=== PATIENT | male | born 1970 | race Caucasian/White ===

== ENCOUNTER 2021-05-16 04:02 | Inpatient (IN) ==
[2021-05-16] MEDS ORDERED: ONDANSETRON 4 MG/2 ML VIAL ONE (04:32)
[2021-05-16] MEDS ORDERED: NITROGLYCERIN 2% OINT 1 INCH/GM PACK TOP STA (04:41)
[2021-05-16] MEDS ORDERED: ASPIRIN 325 MG TABLET PO STA (04:41)
[2021-05-16] MEDS ORDERED: ONDANSETRON 4 MG/2 ML VIAL IV STA (04:41)
[2021-05-16] MEDS ORDERED: MORPHINE 2 MG/1 ML SYRINGE IV STA (04:41)
[2021-05-16] MEDS ORDERED: AMIODARONE 150 MG/3 ML VIAL ONE (05:22)
[2021-05-16 05:24] LABS: Basophils # 0.1 10*3/uL (0.0-0.2); Basophils % 0.5 % (0.0-0.8); Eosinophils # 0.1 10*3/uL (0.0-0.87); Eosinophils % 0.8 % (0.00-10.9); Immature Granulocytes % 0.5 %; Immature Granulocytes Absolute 0.06 #; Lymphocytes # 0.9 10*3/uL (1.4-4.0); Lymphocytes % 8.1 % (21.2-54.2); Mean Corpuscular Volume 94.2 FL (87-102); Mean Platelet Volume 11.4 FL (9.6-12.0); Neutrophils % 86.1 % (38.7-73.9); Platelet Count 290 T/CUMM (130-400); Red Blood Count 1.72 MC/CUMM (3.8-5.5); Red Cell Distribution Width 17.2 % (9.3-17.3); White Blood Count 11.2 T/CUMM (4-12)
[2021-05-16] MEDS ORDERED: AMIODARONE 450 MG/9 ML VIAL IV ONE (05:24)
[2021-05-16 05:26] LABS: Hematocrit 16.2 VOL% (42.0-52.0); Hemoglobin 4.7 GM/DL (14.0-18.0)
[2021-05-16] MEDS ORDERED: AMIODARONE INJ 450 MG in DEXTROSE 5% 241 ML IV SCH (05:30)
[2021-05-16] MEDS ORDERED: SODIUM CHLORIDE 0.9% 1,000 ML IV PRN (05:34)
[2021-05-16 05:37] LABS: INR 1.1; PT Patient Result 12.1 SECS (10.5-12.0)
[2021-05-16 05:55] LABS: Alanine Aminotransferase 28 U/L (16-61); Albumin 2.9 G/DL (3.4-5.0); Alkaline Phosphatase 78 U/L (45-117); Amylase 62 U/L (25-115); Aspartate Amino Transferase 35 U/L (0-37); Bilirubin,Total < 0.39 MG/DL (0.20-1.00); Blood Urea Nitrogen 42 MG/DL (7-18); Calcium 10.3 MG/DL (8.5-10.1); Carbon Dioxide 18 MMOL/L (21-32); Estimated Glom Filtration Rate 38 ML/MIN; Glucose 499 MG/DL (74-106); Osmolality,Calculated 292.8 MOS/KG (273-304); Potassium 4.7 MMOL/L (3.5-5.1); Sodium 130 MMOL/L (136-145); Total Protein 6.4 G/DL (6.4-8.2)
[2021-05-16] MEDS ORDERED: INSULIN REGULAR 100 UNIT/ML SUBCUT STA (05:57)
[2021-05-16] MEDS ORDERED: SIMETHICONE CHEW 125 MG TABLET PO PRN (07:02)
[2021-05-16] MEDS ORDERED: ALBUTEROL/IPRATROPIUM 3 ML NEB RESP TX PRN (07:02)
[2021-05-16] MEDS ORDERED: DOCUSATE SODIUM 100 MG CAPSULE PO PRN (07:02)
[2021-05-16] MEDS ORDERED: CALCIUM CARBONATE CHEW 500 MG TABLET PO PRN (07:02)
[2021-05-16] MEDS ORDERED: ACETAMINOPHEN 325 MG TABLET PO PRN (07:02)
[2021-05-16] MEDS ORDERED: BISACODYL 5 MG TABLET PO PRN (07:02)
[2021-05-16] MEDS ORDERED: DEXTROSE 50% 25 GM/50 ML VIAL IV PRN (07:12)
[2021-05-16] MEDS ORDERED: GLUCAGON 1 MG VIAL IM PRN (07:12)
[2021-05-16] MEDS ORDERED: ENOXAPARIN 30 MG/0.3 ML SYRINGE SUBCUT SCH (07:30)
[2021-05-16] MEDS ORDERED: LACTATED RINGERS 1,000 ML IV SCH (07:30)
[2021-05-16] MEDS ORDERED: PANTOPRAZOLE 40 MG VIAL IV SCH (07:30)
[2021-05-16] MEDS: INSULIN REGULAR 100 UNIT/ML SUBCUT SCH ×4 (08:15→21:40)
[2021-05-16] MEDS: levETIRAcetam 500 MG TABLET PO SCH ×2 (08:44→21:37)
[2021-05-16] MEDS: carvediloL 6.25 MG TABLET PO SCH ×2 (08:44→21:37)
[2021-05-16] MEDS: CEFUROXIME 500 MG TABLET PO SCH ×2 (08:44→22:19)
[2021-05-16] MEDS: INSULIN GLARGINE 100 UNIT/ML SUBCUT SCH ×2 (10:16→21:40)
[2021-05-16] MEDS: LINEZOLID 600 MG TABLET PO SCH ×2 (10:16→21:37)
[2021-05-16] MEDS: PANTOPRAZOLE 40 MG VIAL IV SCH ×2 (13:08→23:46)
[2021-05-16] MEDS: ALBUTEROL/IPRATROPIUM 3 ML NEB RESP TX SCH ×2 (13:40→20:00)
[2021-05-16] MEDS: ONDANSETRON 4 MG/2 ML VIAL IV PRN (14:46)
[2021-05-16] MEDS: ATORVASTATIN 80 MG TABLET PO SCH (21:37)
[2021-05-17] MEDS: ALBUTEROL/IPRATROPIUM 3 ML NEB RESP TX SCH ×4 (00:30→19:55)
[2021-05-17] MEDS ORDERED: SODIUM CHLORIDE 0.9% 500 ML IV ONE (01:02)
[2021-05-17 01:31] LABS: Basophils # 0.1 10*3/uL (0.0-0.2); Basophils % 0.5 % (0.0-0.8); Eosinophils # 0.1 10*3/uL (0.0-0.87); Eosinophils % 1.2 % (0.00-10.9); Hematocrit 18.6 VOL% (42.0-52.0); Immature Granulocytes % 0.8 %; Immature Granulocytes Absolute 0.09 #; Lymphocytes # 1.7 10*3/uL (1.4-4.0); Lymphocytes % 15.3 % (21.2-54.2); Mean Corpuscular HGB Conc 31.7 GM/DL (32-36); Mean Corpuscular Volume 88.6 FL (87-102); Mean Platelet Volume 10.7 FL (9.6-12.0); Monocytes % 6.7 % (1.7-12.7); NRBC # 0.04 10*3/uL; Neutrophils % 75.5 % (38.7-73.9); Platelet Count 199 T/CUMM (130-400); Red Cell Distribution Width 15.8 % (9.3-17.3); White Blood Count 11.1 T/CUMM (4-12)
[2021-05-17 01:32] LABS: Hemoglobin 5.9 GM/DL (14.0-18.0)
[2021-05-17] MEDS ORDERED: SODIUM CHLORIDE 0.9% 1,000 ML IV PRN (01:37)
[2021-05-17] MEDS ORDERED: MORPHINE 2 MG/1 ML SYRINGE IV ONE (06:30)
[2021-05-17] MEDS ORDERED: MORPHINE 2 MG/1 ML SYRINGE ONE (06:32)
[2021-05-17 08:41] LABS: Basophils # 0.1 10*3/uL (0.0-0.2); Basophils % 0.7 % (0.0-0.8); Eosinophils # 0.1 10*3/uL (0.0-0.87); Eosinophils % 1.1 % (0.00-10.9); Hematocrit 28.2 VOL% (42.0-52.0); Hemoglobin 8.8 GM/DL (14.0-18.0); Immature Granulocytes % 1.5 %; Immature Granulocytes Absolute 0.17 #; Lymphocytes # 1.4 10*3/uL (1.4-4.0); Lymphocytes % 12.3 % (21.2-54.2); Mean Corpuscular HGB Conc 31.2 GM/DL (32-36); Mean Corpuscular Volume 87.6 FL (87-102); Monocytes % 6.6 % (1.7-12.7); NRBC # 0.05 10*3/uL; Neutrophils % 77.8 % (38.7-73.9); Platelet Count 204 T/CUMM (130-400); Red Blood Count 3.22 MC/CUMM (3.8-5.5); Red Cell Distribution Width 17.7 % (9.3-17.3); White Blood Count 11.4 T/CUMM (4-12)
[2021-05-17] MEDS: INSULIN GLARGINE 100 UNIT/ML SUBCUT SCH ×2 (09:19→21:02)
[2021-05-17] MEDS: LINEZOLID 600 MG TABLET PO SCH ×2 (09:19→21:30)
[2021-05-17] MEDS: carvediloL 6.25 MG TABLET PO SCH ×2 (09:19→21:30)
[2021-05-17] MEDS: levETIRAcetam 500 MG TABLET PO SCH ×2 (09:19→21:01)
[2021-05-17] MEDS: CEFUROXIME 500 MG TABLET PO SCH ×2 (09:19→21:01)
[2021-05-17] MEDS: INSULIN REGULAR 100 UNIT/ML SUBCUT SCH ×4 (09:20→21:03)
[2021-05-17 09:23] LABS: Albumin 2.7 G/DL (3.4-5.0); Bilirubin,Total 1.4 MG/DL (0.20-1.00); Calcium 9.5 MG/DL (8.5-10.1); Potassium 4.5 MMOL/L (3.5-5.1); Total Protein 6.3 G/DL (6.4-8.2)
[2021-05-17] MEDS: PANTOPRAZOLE 40 MG VIAL IV SCH (12:26)
[2021-05-17 13:18] LABS: Hematocrit 26.4 VOL% (42.0-52.0); Hemoglobin 8.5 GM/DL (14.0-18.0)
[2021-05-17] MEDS: SODIUM HYPOCHLORITE 0.25% IRRIG 473 ML BOTTLE TOP SCH (15:12)
[2021-05-17 19:16] LABS: Hematocrit 27.7 VOL% (42.0-52.0); Hemoglobin 8.9 GM/DL (14.0-18.0)
[2021-05-17] MEDS: ATORVASTATIN 80 MG TABLET PO SCH (21:02)
[2021-05-17] MEDS: ONDANSETRON 4 MG/2 ML VIAL IV PRN (22:03)
[2021-05-18] MEDS: ALBUTEROL/IPRATROPIUM 3 ML NEB RESP TX SCH ×4 (00:04→20:09)
[2021-05-18] MEDS: PANTOPRAZOLE 40 MG VIAL IV SCH ×2 (01:06→12:24)
[2021-05-18 03:12] LABS: Basophils # 0.1 10*3/uL (0.0-0.2); Basophils % 0.9 % (0.0-0.8); Eosinophils # 0.3 10*3/uL (0.0-0.87); Eosinophils % 2.4 % (0.00-10.9); Hematocrit 24.7 VOL% (42.0-52.0); Hemoglobin 7.8 GM/DL (14.0-18.0); Immature Granulocytes Absolute 0.11 #; Lymphocytes # 2.1 10*3/uL (1.4-4.0); Lymphocytes % 19.5 % (21.2-54.2); Mean Corpuscular HGB Conc 31.6 GM/DL (32-36); Mean Corpuscular Volume 86.4 FL (87-102); Mean Platelet Volume 10.3 FL (9.6-12.0); Monocytes % 8.2 % (1.7-12.7); NRBC # 0.04 10*3/uL; Platelet Count 177 T/CUMM (130-400); Red Blood Count 2.86 MC/CUMM (3.8-5.5); Red Cell Distribution Width 17.7 % (9.3-17.3); White Blood Count 10.7 T/CUMM (4-12)
[2021-05-18 03:41] LABS: Calcium 8.6 MG/DL (8.5-10.1); Osmolality,Calculated 275.8 MOS/KG (273-304); Potassium 3.8 MMOL/L (3.5-5.1)
[2021-05-18] MEDS: INSULIN REGULAR 100 UNIT/ML SUBCUT SCH ×4 (08:46→20:57)
[2021-05-18] MEDS: SODIUM HYPOCHLORITE 0.25% IRRIG 473 ML BOTTLE TOP SCH (08:47)
[2021-05-18] MEDS: CEFUROXIME 500 MG TABLET PO SCH ×2 (09:15→20:56)
[2021-05-18] MEDS: carvediloL 6.25 MG TABLET PO SCH ×2 (09:16→20:56)
[2021-05-18] MEDS: levETIRAcetam 500 MG TABLET PO SCH ×2 (09:17→20:56)
[2021-05-18] MEDS: LINEZOLID 600 MG TABLET PO SCH ×2 (09:18→20:56)
[2021-05-18] MEDS: INSULIN GLARGINE 100 UNIT/ML SUBCUT SCH ×2 (09:18→20:56)
[2021-05-18] MEDS: ONDANSETRON 4 MG/2 ML VIAL IV PRN ×2 (10:40→18:46)
[2021-05-18] MEDS ORDERED: MORPHINE 2 MG/1 ML SYRINGE IV ONE (10:43)
[2021-05-18] MEDS: SODIUM CHLORIDE 0.9% 1,000 ML IV SCH (13:27)
[2021-05-18] MEDS ORDERED: LIDOCAINE 2% 5 ML VIAL ONE (13:43)
[2021-05-18] MEDS ORDERED: ETOMIDATE 40 MG/20 ML VIAL IV ONE (13:43)
[2021-05-18] MEDS ORDERED: MIDAZOLAM 2 MG/2 ML VIAL ONE (13:51)
[2021-05-18] MEDS: ATORVASTATIN 80 MG TABLET PO SCH (20:54)
[2021-05-19] MEDS: ALBUTEROL/IPRATROPIUM 3 ML NEB RESP TX SCH ×4 (00:26→20:07)
[2021-05-19] MEDS: PANTOPRAZOLE 40 MG VIAL IV SCH ×2 (00:27→12:58)
[2021-05-19 05:58] LABS: Basophils # 0.1 10*3/uL (0.0-0.2); Basophils % 0.7 % (0.0-0.8); Eosinophils # 0.4 10*3/uL (0.0-0.87); Eosinophils % 3.8 % (0.00-10.9); Hematocrit 24.7 VOL% (42.0-52.0); Hemoglobin 7.8 GM/DL (14.0-18.0); Immature Granulocytes % 0.9 %; Immature Granulocytes Absolute 0.09 #; Lymphocytes # 2.1 10*3/uL (1.4-4.0); Lymphocytes % 20.5 % (21.2-54.2); Mean Corpuscular HGB Conc 31.6 GM/DL (32-36); Mean Corpuscular Volume 87.6 FL (87-102); Mean Platelet Volume 11.2 FL (9.6-12.0); Monocytes % 9.1 % (1.7-12.7); NRBC # 0.03 10*3/uL; Platelet Count 173 T/CUMM (130-400); Red Blood Count 2.82 MC/CUMM (3.8-5.5); Red Cell Distribution Width 17.2 % (9.3-17.3)
[2021-05-19 06:43] LABS: Calcium 8.3 MG/DL (8.5-10.1); Osmolality,Calculated 276.8 MOS/KG (273-304); Potassium 3.5 MMOL/L (3.5-5.1)
[2021-05-19] MEDS: SODIUM CHLORIDE 0.9% 1,000 ML IV SCH (07:33)
[2021-05-19] MEDS: carvediloL 6.25 MG TABLET PO SCH ×2 (09:41→21:55)
[2021-05-19] MEDS: levETIRAcetam 500 MG TABLET PO SCH ×2 (09:41→21:54)
[2021-05-19] MEDS: LINEZOLID 600 MG TABLET PO SCH ×2 (09:41→21:53)
[2021-05-19] MEDS: CEFUROXIME 500 MG TABLET PO SCH ×2 (09:41→21:54)
[2021-05-19] MEDS: INSULIN REGULAR 100 UNIT/ML SUBCUT SCH ×4 (09:45→21:56)
[2021-05-19] MEDS: INSULIN GLARGINE 100 UNIT/ML SUBCUT SCH ×2 (09:46→21:55)
[2021-05-19] MEDS: SODIUM HYPOCHLORITE 0.25% IRRIG 473 ML BOTTLE TOP SCH (14:19)
[2021-05-19] MEDS ORDERED: BISACODYL 5 MG TABLET PO ONE (15:00)
[2021-05-19] MEDS: ONDANSETRON 4 MG/2 ML VIAL IV PRN ×2 (17:46→21:56)
[2021-05-19] MEDS ORDERED: POLYETHYLENE GLYCOL POWDER 255 GM BOTTLE PO ONE (18:00)
[2021-05-19] MEDS: ATORVASTATIN 80 MG TABLET PO SCH (21:53)
[2021-05-20] MEDS: PANTOPRAZOLE 40 MG VIAL IV SCH ×3 (00:03→23:19)
[2021-05-20] MEDS: ALBUTEROL/IPRATROPIUM 3 ML NEB RESP TX SCH ×4 (01:38→19:05)
[2021-05-20] MEDS: ONDANSETRON 4 MG/2 ML VIAL IV PRN ×4 (01:47→18:18)
[2021-05-20] MEDS ORDERED: POLYETHYLENE GLYCOL POWDER 255 GM BOTTLE PO ONE (05:00)
[2021-05-20 06:13] LABS: Basophils # 0.1 10*3/uL (0.0-0.2); Basophils % 0.7 % (0.0-0.8); Eosinophils # 0.6 10*3/uL (0.0-0.87); Eosinophils % 5.4 % (0.00-10.9); Hemoglobin 7.6 GM/DL (14.0-18.0); Immature Granulocytes % 0.8 %; Immature Granulocytes Absolute 0.08 #; Lymphocytes # 1.7 10*3/uL (1.4-4.0); Lymphocytes % 16.9 % (21.2-54.2); Mean Corpuscular HGB Conc 30.4 GM/DL (32-36); Mean Corpuscular Volume 89.6 FL (87-102); Mean Platelet Volume 11.7 FL (9.6-12.0); Monocytes % 7.8 % (1.7-12.7); NRBC # 0.02 10*3/uL; Neutrophils % 68.4 % (38.7-73.9); Platelet Count 192 T/CUMM (130-400); Red Blood Count 2.79 MC/CUMM (3.8-5.5); Red Cell Distribution Width 17.1 % (9.3-17.3); White Blood Count 10.1 T/CUMM (4-12)
[2021-05-20 06:26] LABS: PT Patient Result 11.4 SECS (10.5-12.0)
[2021-05-20 06:29] LABS: Calcium 7.9 MG/DL (8.5-10.1); Osmolality,Calculated 274.5 MOS/KG (273-304); Potassium 3.7 MMOL/L (3.5-5.1)
[2021-05-20] MEDS: INSULIN REGULAR 100 UNIT/ML SUBCUT SCH ×4 (07:58→22:14)
[2021-05-20] MEDS: INSULIN GLARGINE 100 UNIT/ML SUBCUT SCH ×2 (09:48→22:14)
[2021-05-20] MEDS: SODIUM CHLORIDE 0.9% 1,000 ML IV SCH (09:48)
[2021-05-20] MEDS: LACTATED RINGERS 1,000 ML IV SCH (12:20)
[2021-05-20] MEDS ORDERED: MIDAZOLAM 2 MG/2 ML VIAL ONE (12:26)
[2021-05-20] MEDS ORDERED: ETOMIDATE 40 MG/20 ML VIAL IV ONE (12:26)
[2021-05-20] MEDS ORDERED: propofoL 200 MG/20 ML VIAL IV ONE (12:26)
[2021-05-20] MEDS ORDERED: LIDOCAINE 2% 5 ML VIAL ONE (12:27)
[2021-05-20] MEDS: LINEZOLID 600 MG TABLET PO SCH ×2 (14:35→22:13)
[2021-05-20] MEDS: CEFUROXIME 500 MG TABLET PO SCH ×2 (14:35→22:13)
[2021-05-20] MEDS: SODIUM HYPOCHLORITE 0.25% IRRIG 473 ML BOTTLE TOP SCH (14:35)
[2021-05-20] MEDS: levETIRAcetam 500 MG TABLET PO SCH ×2 (14:35→22:14)
[2021-05-20] MEDS: carvediloL 6.25 MG TABLET PO SCH ×2 (14:35→22:13)
[2021-05-20] MEDS: ATORVASTATIN 80 MG TABLET PO SCH (22:13)
[2021-05-21] MEDS: ALBUTEROL/IPRATROPIUM 3 ML NEB RESP TX SCH ×2 (01:08→07:29)
[2021-05-21 05:03] LABS: Basophils % 0.4 % (0.0-0.8); Eosinophils # 0.5 10*3/uL (0.0-0.87); Eosinophils % 5.3 % (0.00-10.9); Hematocrit 24.4 VOL% (42.0-52.0); Hemoglobin 7.4 GM/DL (14.0-18.0); Immature Granulocytes % 0.6 %; Immature Granulocytes Absolute 0.05 #; Lymphocytes # 2.2 10*3/uL (1.4-4.0); Lymphocytes % 24.2 % (21.2-54.2); Mean Corpuscular HGB Conc 30.3 GM/DL (32-36); Mean Corpuscular Volume 88.4 FL (87-102); Monocytes % 7.9 % (1.7-12.7); Neutrophils % 61.6 % (38.7-73.9); Platelet Count 158 T/CUMM (130-400); Red Blood Count 2.76 MC/CUMM (3.8-5.5); Red Cell Distribution Width 17.6 % (9.3-17.3)
[2021-05-21 05:22] LABS: Calcium 7.9 MG/DL (8.5-10.1); Osmolality,Calculated 273.7 MOS/KG (273-304); Potassium 3.6 MMOL/L (3.5-5.1)
[2021-05-21 05:51] LABS: Hypochromasia 1+; Microcytosis 1+
[2021-05-21 05:52] LABS: Anisocytosis 1+; Ovalocytes Slight; Platelet Estimate Adequate; Polychromasia Slight
[2021-05-21] MEDS: INSULIN REGULAR 100 UNIT/ML SUBCUT SCH ×2 (08:11→12:45)
[2021-05-21] MEDS: SODIUM CHLORIDE 0.9% 1,000 ML IV SCH (09:51)
[2021-05-21] MEDS: LACTATED RINGERS 1,000 ML IV SCH (09:51)
[2021-05-21] MEDS: LINEZOLID 600 MG TABLET PO SCH (10:15)
[2021-05-21] MEDS: levETIRAcetam 500 MG TABLET PO SCH (10:15)
[2021-05-21] MEDS: CEFUROXIME 500 MG TABLET PO SCH (10:16)
[2021-05-21] MEDS: carvediloL 6.25 MG TABLET PO SCH (10:16)
[2021-05-21] MEDS: INSULIN GLARGINE 100 UNIT/ML SUBCUT SCH (10:18)
[2021-05-21] MEDS: SODIUM HYPOCHLORITE 0.25% IRRIG 473 ML BOTTLE TOP SCH (10:21)
[2021-05-21 11:02] VITALS: BP 138/75
[2021-05-21] MEDS: PANTOPRAZOLE 40 MG VIAL IV SCH (12:45)
== END 2021-05-21 13:10 | disposition home or self-care (01) | DRG 813 ==
LOC: EDBD → EDUNIT# → N.ED 04:02 → N.EDINP 07:03 → SUATTDRO 07:03 → N.ICU 17:50 → N.TELES 05-17 16:00
PROVIDERS: ADMIT Internal Medicine; ATTEND Internal Medicine

== ENCOUNTER 2021-11-07 17:55 | Inpatient (IN) ==
[2021-11-07] MEDS ORDERED: VANCOMYCIN INJ 1,000 MG in SODIUM CHLORIDE 0.9% 250 ML IV STA ×2 (21:45→22:54)
[2021-11-07] MEDS ORDERED: SODIUM CHLORIDE 0.9% 500 ML IV STA (21:45)
[2021-11-07] MEDS ORDERED: PIPERACILLIN/TAZOBACTAM 3,375 MG in SODIUM CHLORIDE 0.9% 100 ML IV STA (21:45)
[2021-11-07 22:29] LABS: Basophils # 0.1 10*3/uL (0.0-0.2); Basophils % 0.8 % (0.0-0.8); Eosinophils # 0.6 10*3/uL (0.0-0.87); Eosinophils % 5.4 % (0.00-10.9); Hematocrit 41.5 VOL% (42.0-52.0); Hemoglobin 13.7 GM/DL (14.0-18.0); Immature Granulocytes % 0.7 %; Immature Granulocytes Absolute 0.08 #; Lymphocytes # 1.7 10*3/uL (1.4-4.0); Lymphocytes % 14.8 % (21.2-54.2); Mean Corpuscular Volume 96.1 FL (87-102); Mean Platelet Volume 11.2 FL (9.6-12.0); Monocytes % 7.3 % (1.7-12.7); Platelet Count 218 T/CUMM (130-400); Red Blood Count 4.32 MC/CUMM (3.8-5.5); Red Cell Distribution Width 13.4 % (9.3-17.3); White Blood Count 11.4 T/CUMM (4-12)
[2021-11-07 22:47] LABS: INR 0.9; PT Patient Result 10.7 SECS (10.5-12.0)
[2021-11-07 23:08] LABS: Alanine Aminotransferase 29 U/L (16-61); Albumin 1.5 G/DL (3.4-5.0); Alkaline Phosphatase 111 U/L (45-117); Amylase 51 U/L (25-115); Aspartate Amino Transferase 33 U/L (0-37); Bilirubin,Total < 0.39 MG/DL (0.20-1.00); Blood Urea Nitrogen 16 MG/DL (7-18); Calcium 7.8 MG/DL (8.5-10.1); Carbon Dioxide 24 MMOL/L (21-32); Estimated Glom Filtration Rate 49 ML/MIN; Glucose 227 MG/DL (74-106); Osmolality,Calculated 284.5 MOS/KG (273-304); Potassium 3.3 MMOL/L (3.5-5.1); Sodium 139 MMOL/L (136-145)
[2021-11-07] MEDS ORDERED: ONDANSETRON 4 MG/2 ML VIAL IV PRN (23:48)
[2021-11-07] MEDS ORDERED: GLUCAGON 1 MG VIAL IM PRN (23:48)
[2021-11-07] MEDS ORDERED: ACETAMINOPHEN 325 MG TABLET PO PRN (23:48)
[2021-11-07] MEDS ORDERED: DEXTROSE 10% 250 ML BAG IV PRN (23:53)
[2021-11-08 05:18] LABS: Basophils # 0.1 10*3/uL (0.0-0.2); Basophils % 0.8 % (0.0-0.8); Eosinophils # 0.5 10*3/uL (0.0-0.87); Eosinophils % 5.2 % (0.00-10.9); Hematocrit 37.8 VOL% (42.0-52.0); Hemoglobin 12.2 GM/DL (14.0-18.0); Immature Granulocytes % 0.7 %; Immature Granulocytes Absolute 0.06 #; Lymphocytes # 1.3 10*3/uL (1.4-4.0); Lymphocytes % 14.5 % (21.2-54.2); Mean Corpuscular HGB Conc 32.3 GM/DL (32-36); Mean Corpuscular Volume 98.2 FL (87-102); Mean Platelet Volume 11.1 FL (9.6-12.0); Monocytes % 6.2 % (1.7-12.7); Neutrophils % 72.6 % (38.7-73.9); Platelet Count 190 T/CUMM (130-400); Red Blood Count 3.85 MC/CUMM (3.8-5.5); Red Cell Distribution Width 13.5 % (9.3-17.3); White Blood Count 9.1 T/CUMM (4-12)
[2021-11-08 05:31] LABS: Calcium 7.5 MG/DL (8.5-10.1); Osmolality,Calculated 292.5 MOS/KG (273-304); Potassium 3.4 MMOL/L (3.5-5.1)
[2021-11-08] MEDS ORDERED: INSULIN REGULAR 100 UNIT/ML SUBCUT SCH (07:30)
[2021-11-08 07:40] LABS: Bilirubin,Urine Negative (Negative); Blood, Urine Small mg/dL (Negative); Glucose,Urine (UA) >=500 mg/dL (Negative); Ketones,Urine Negative (Negative); Mucus,Urine Occasional /LPF (Occasional); Nitrite,Urine Negative (Negative); Protein,Urine >=500 MG/DL; RBC,Urine 1 /HPF (0-4); Urine Appearance CLEAR (Clear); Urine Color Straw (Yellow); Urine Specific Gravity 1.013 (1.001-1.035); Urine Urobilinogen < 2.0 EU/DL (<2.0)
[2021-11-08] MEDS ORDERED: POTASSIUM CHLORIDE RIDER 10 MEQ/100 ML PREMIX IV PRN (09:37)
[2021-11-08] MEDS ORDERED: POTASSIUM CHLORIDE 20 MEQ TABLET PO PRN (09:37)
[2021-11-08] MEDS: ATORVASTATIN 80 MG TABLET PO SCH (10:42)
[2021-11-08] MEDS: FUROSEMIDE 20 MG TABLET PO SCH (10:42)
[2021-11-08] MEDS: SACUBITRIL/VALSARTAN 49-51 MG TABLET PO SCH ×2 (10:42→21:14)
[2021-11-08] MEDS: CLOPIDOGREL 75 MG TABLET PO SCH (10:44)
[2021-11-08] MEDS: GABAPENTIN 300 MG CAPSULE PO SCH ×3 (10:44→21:14)
[2021-11-08] MEDS: PANTOPRAZOLE 40 MG TABLET PO SCH (10:45)
[2021-11-08] MEDS: carvediloL 12.5 MG TABLET PO SCH ×2 (10:52→21:14)
[2021-11-08] MEDS ORDERED: DEXTROSE 10% 250 ML BAG IV PRN (11:04)
[2021-11-08] MEDS ORDERED: KETOROLAC 30 MG/1 ML VIAL IV PRN (11:05)
[2021-11-08] MEDS: INSULIN LISPRO 100 UNIT/ML SUBCUT SCH ×2 (12:10→18:29)
[2021-11-08] MEDS ORDERED: BUPIVACAINE 0.5% 50 ML VIAL ONE (13:12)
[2021-11-08] MEDS ORDERED: LIDOCAINE 1%/EPI INJ 20 ML VIAL ONE (13:12)
[2021-11-08] MEDS ORDERED: MIDAZOLAM 2 MG/2 ML VIAL ONE (13:15)
[2021-11-08] MEDS ORDERED: KETAMINE 500 MG/10 ML VIAL ONE (13:15)
[2021-11-08] MEDS ORDERED: propofoL 200 MG/20 ML VIAL IV ONE (13:24)
[2021-11-08] MEDS ORDERED: LIDOCAINE 2% 5 ML VIAL ONE (13:24)
[2021-11-08] MEDS ORDERED: fentaNYL 100 MCG/2 ML VIAL ONE (13:28)
[2021-11-08] MEDS ORDERED: LACTATED RINGERS 1,000 ML IV SCH (13:30)
[2021-11-08] MEDS: VANCOMYCIN INJ 1,500 MG in SODIUM CHLORIDE 0.9% 500 ML IV SCH (18:27)
[2021-11-08] MEDS: DAPAGLIFLOZIN 10 MG TABLET PO SCH (21:14)
[2021-11-09] MEDS: INSULIN LISPRO 100 UNIT/ML SUBCUT SCH ×5 (00:19→19:36)
[2021-11-09 05:50] LABS: Basophils # 0.1 10*3/uL (0.0-0.2); Basophils % 0.9 % (0.0-0.8); Eosinophils # 0.4 10*3/uL (0.0-0.87); Eosinophils % 4.3 % (0.00-10.9); Hematocrit 37.9 VOL% (42.0-52.0); Immature Granulocytes % 0.8 %; Immature Granulocytes Absolute 0.08 #; Lymphocytes # 1.5 10*3/uL (1.4-4.0); Lymphocytes % 14.9 % (21.2-54.2); Mean Corpuscular HGB Conc 31.7 GM/DL (32-36); Mean Corpuscular Volume 98.2 FL (87-102); Mean Platelet Volume 11.6 FL (9.6-12.0); Monocytes % 8.3 % (1.7-12.7); Neutrophils % 70.8 % (38.7-73.9); Platelet Count 189 T/CUMM (130-400); Red Blood Count 3.86 MC/CUMM (3.8-5.5); Red Cell Distribution Width 13.7 % (9.3-17.3); White Blood Count 9.8 T/CUMM (4-12)
[2021-11-09 06:10] LABS: Calcium 7.4 MG/DL (8.5-10.1); Osmolality,Calculated 283.4 MOS/KG (273-304); Potassium 3.4 MMOL/L (3.5-5.1)
[2021-11-09] MEDS: ATORVASTATIN 80 MG TABLET PO SCH (09:37)
[2021-11-09] MEDS: CLOPIDOGREL 75 MG TABLET PO SCH (09:37)
[2021-11-09] MEDS: carvediloL 12.5 MG TABLET PO SCH ×2 (09:38→20:17)
[2021-11-09] MEDS: FUROSEMIDE 20 MG TABLET PO SCH (09:38)
[2021-11-09] MEDS: GABAPENTIN 300 MG CAPSULE PO SCH ×3 (09:38→20:17)
[2021-11-09] MEDS: SACUBITRIL/VALSARTAN 49-51 MG TABLET PO SCH ×2 (09:38→20:17)
[2021-11-09] MEDS: PIPERACILLIN/TAZOBACTAM 3,375 MG in SODIUM CHLORIDE 0.9% 100 ML IV SCH ×2 (09:38→19:25)
[2021-11-09] MEDS: PANTOPRAZOLE 40 MG TABLET PO SCH (09:46)
[2021-11-09] MEDS: VANCOMYCIN INJ 1,500 MG in SODIUM CHLORIDE 0.9% 500 ML IV SCH (14:07)
[2021-11-09] MEDS: SODIUM HYPOCHLORITE 0.25% IRRIG 473 ML BOTTLE TOP SCH (14:08)
[2021-11-09] MEDS: FERROUS SULFATE 325 MG TABLET PO SCH (20:17)
[2021-11-09] MEDS: DAPAGLIFLOZIN 10 MG TABLET PO SCH (20:17)
[2021-11-09] MEDS ORDERED: hydrALAZINE 20 MG/1 ML VIAL IV PRN (21:17)
[2021-11-10] MEDS: INSULIN LISPRO 100 UNIT/ML SUBCUT SCH ×2 (00:32→05:22)
[2021-11-10] MEDS: PIPERACILLIN/TAZOBACTAM 3,375 MG in SODIUM CHLORIDE 0.9% 100 ML IV SCH ×2 (01:46→10:12)
[2021-11-10] MEDS: VANCOMYCIN INJ 1,500 MG in SODIUM CHLORIDE 0.9% 500 ML IV SCH (05:14)
[2021-11-10 06:30] LABS: Basophils # 0.1 10*3/uL (0.0-0.2); Eosinophils # 0.5 10*3/uL (0.0-0.87); Eosinophils % 6.3 % (0.00-10.9); Hematocrit 35.5 VOL% (42.0-52.0); Hemoglobin 11.6 GM/DL (14.0-18.0); Immature Granulocytes % 0.7 %; Immature Granulocytes Absolute 0.05 #; Lymphocytes # 1.5 10*3/uL (1.4-4.0); Lymphocytes % 19.6 % (21.2-54.2); Mean Corpuscular HGB Conc 32.7 GM/DL (32-36); Mean Corpuscular Volume 97.3 FL (87-102); Mean Platelet Volume 11.7 FL (9.6-12.0); Monocytes % 7.2 % (1.7-12.7); Neutrophils % 65.2 % (38.7-73.9); Platelet Count 185 T/CUMM (130-400); Red Blood Count 3.65 MC/CUMM (3.8-5.5); Red Cell Distribution Width 13.4 % (9.3-17.3); White Blood Count 7.7 T/CUMM (4-12)
[2021-11-10 06:33] LABS: Calcium 7.6 MG/DL (8.5-10.1); Osmolality,Calculated 289.4 MOS/KG (273-304); Potassium 3.5 MMOL/L (3.5-5.1)
[2021-11-10 08:25] VITALS: BP 146/73
[2021-11-10] MEDS ORDERED: INSULIN DETEMIR 100 UNIT/ML SUBCUT SCH (09:00)
[2021-11-10] MEDS ORDERED: INSULIN GLARGINE 100 UNIT/ML SUBCUT SCH (09:00)
[2021-11-10] MEDS: GABAPENTIN 300 MG CAPSULE PO SCH (09:18)
[2021-11-10] MEDS: ATORVASTATIN 80 MG TABLET PO SCH (09:18)
[2021-11-10] MEDS: carvediloL 12.5 MG TABLET PO SCH (09:18)
[2021-11-10] MEDS: FUROSEMIDE 20 MG TABLET PO SCH (09:18)
[2021-11-10] MEDS: PANTOPRAZOLE 40 MG TABLET PO SCH (09:19)
[2021-11-10] MEDS: SACUBITRIL/VALSARTAN 49-51 MG TABLET PO SCH (09:19)
[2021-11-10] MEDS: CLOPIDOGREL 75 MG TABLET PO SCH (09:19)
[2021-11-10] MEDS: FERROUS SULFATE 325 MG TABLET PO SCH (09:19)
[2021-11-10] MEDS: SODIUM HYPOCHLORITE 0.25% IRRIG 473 ML BOTTLE TOP SCH (09:19)
[2021-11-10] MEDS ORDERED: amLODIPine 5 MG TABLET PO SCH (21:16)
== END 2021-11-10 12:30 | disposition home health service (06) | DRG 638 ==
LOC: N.EDINP 17:55 → N.ED 17:55 → SUATTDRO 11-08 02:40 → N.3E 11-08 12:55
PROVIDERS: ADMIT Hospitalist; ATTEND Internal Medicine

== ENCOUNTER 2022-06-27 00:13 | Observation (INO) ==
[2022-06-27] MEDS ORDERED: NITROGLYCERIN SL 0.4 MG TABLET SL STA (00:34)
[2022-06-27 00:56] LABS: PT Patient Result 10.9 SECS (10.1-12.1); Partial Thromboplastin Time 24.4 SECS (23.7-32.9)
[2022-06-27 01:06] LABS: Bilirubin,Total 0.4 MG/DL (0.20-1.00); Calcium 8.7 MG/DL (8.5-10.1); Osmolality,Calculated 290.4 MOS/KG (273-304); Potassium 4.4 MMOL/L (3.5-5.1); Total Protein 5.9 G/DL (6.4-8.2)
[2022-06-27 01:17] LABS: Basophils # 0.1 10*3/uL (0.0-0.2); Eosinophils # 0.4 10*3/uL (0.0-0.87); Eosinophils % 3.6 % (0.00-10.9); Hematocrit 40.6 VOL% (42.0-52.0); Hemoglobin 12.6 GM/DL (14.0-18.0); Immature Granulocytes % 0.5 %; Immature Granulocytes Absolute 0.05 #; Lymphocytes # 1.9 10*3/uL (1.4-4.0); Lymphocytes % 18.7 % (21.2-54.2); Mean Corpuscular Volume 96.7 FL (87-102); Mean Platelet Volume 11.1 FL (9.6-12.0); Monocytes # 0.7 10*3/uL (0.11-0.8); Monocytes % 6.6 % (1.7-12.7); Neutrophils % 69.6 % (38.7-73.9); Platelet Count 231 T/CUMM (130-400); White Blood Count 10.4 T/CUMM (4-12)
[2022-06-27] MEDS ORDERED: MORPHINE 2 MG/1 ML SYRINGE IV STA (01:25)
[2022-06-27] MEDS ORDERED: LABETALOL 20 MG/4 ML SYRINGE IV STA (01:25)
[2022-06-27] MEDS ORDERED: ONDANSETRON 4 MG/2 ML VIAL IV ONE (01:25)
[2022-06-27] MEDS ORDERED: NITROGLYCERIN 2% OINT 1 INCH/GM PACK TOP STA (01:25)
[2022-06-27] MEDS ORDERED: hydrALAZINE 20 MG/1 ML VIAL IV PRN (02:50)
[2022-06-27] MEDS ORDERED: MORPHINE 2 MG/1 ML SYRINGE IV PRN (02:50)
[2022-06-27] MEDS ORDERED: ACETAMINOPHEN 325 MG TABLET PO PRN (02:50)
[2022-06-27] MEDS ORDERED: ONDANSETRON 4 MG/2 ML VIAL IV PRN (02:50)
[2022-06-27] MEDS ORDERED: FUROSEMIDE 20 MG/2 ML VIAL IV ONE (03:45)
[2022-06-27] MEDS ORDERED: NITROGLYCERIN SL 0.4 MG TABLET SL PRN (03:47)
[2022-06-27] MEDS ORDERED: NITROGLYCERIN 2% OINT 1 INCH/GM PACK TOP SCH (06:00)
[2022-06-27] MEDS: POTASSIUM CHLORIDE 20 MEQ TABLET PO SCH ×2 (08:33→21:10)
[2022-06-27] MEDS: carvediloL 12.5 MG TABLET PO SCH ×2 (08:34→21:10)
[2022-06-27] MEDS: ISOSORBIDE MONONITRATE 30 MG TABLET PO SCH (08:35)
[2022-06-27] MEDS: PANTOPRAZOLE 40 MG TABLET PO SCH (08:35)
[2022-06-27] MEDS: ATORVASTATIN 80 MG TABLET PO SCH (08:36)
[2022-06-27] MEDS: GABAPENTIN 300 MG CAPSULE PO SCH ×3 (08:36→21:10)
[2022-06-27] MEDS: FUROSEMIDE 20 MG TABLET PO SCH (08:37)
[2022-06-27] MEDS: INSULIN LISPRO 100 UNIT/ML SUBCUT SCH ×4 (08:39→21:11)
[2022-06-27] MEDS ORDERED: DEXTROSE 10% 250 ML BAG IV PRN (08:52)
[2022-06-27] MEDS ORDERED: GLUCAGON 1 MG VIAL IM PRN (08:52)
[2022-06-27] MEDS ORDERED: ASPIRIN EC 81 MG TABLET PO SCH (09:45)
[2022-06-28 05:06] LABS: Basophils # 0.1 10*3/uL (0.0-0.2); Eosinophils # 0.3 10*3/uL (0.0-0.87); Eosinophils % 3.7 % (0.00-10.9); Hematocrit 34.3 VOL% (42.0-52.0); Hemoglobin 10.7 GM/DL (14.0-18.0); Immature Granulocytes % 0.5 %; Immature Granulocytes Absolute 0.04 #; Lymphocytes # 1.8 10*3/uL (1.4-4.0); Lymphocytes % 20.1 % (21.2-54.2); Mean Corpuscular HGB Conc 31.2 GM/DL (32-36); Mean Corpuscular Volume 97.7 FL (87-102); Mean Platelet Volume 11.4 FL (9.6-12.0); Monocytes # 0.6 10*3/uL (0.11-0.8); Monocytes % 7.4 % (1.7-12.7); Neutrophils % 67.3 % (38.7-73.9); Platelet Count 193 T/CUMM (130-400); Red Blood Count 3.51 MC/CUMM (3.8-5.5); White Blood Count 8.7 T/CUMM (4-12)
[2022-06-28 05:26] LABS: Osmolality,Calculated 293.4 MOS/KG (273-304); Potassium 4.2 MMOL/L (3.5-5.1)
[2022-06-28] MEDS ORDERED: CLOPIDOGREL 75 MG TABLET PO SCH (09:00)
[2022-06-28] MEDS: INSULIN LISPRO 100 UNIT/ML SUBCUT SCH ×2 (09:10→12:15)
[2022-06-28] MEDS: GABAPENTIN 300 MG CAPSULE PO SCH (09:11)
[2022-06-28] MEDS: POTASSIUM CHLORIDE 20 MEQ TABLET PO SCH (09:12)
[2022-06-28] MEDS: carvediloL 12.5 MG TABLET PO SCH (09:12)
[2022-06-28] MEDS: ISOSORBIDE MONONITRATE 30 MG TABLET PO SCH (09:12)
[2022-06-28] MEDS: ATORVASTATIN 80 MG TABLET PO SCH (09:12)
[2022-06-28] MEDS: PANTOPRAZOLE 40 MG TABLET PO SCH (09:12)
[2022-06-28] MEDS: FUROSEMIDE 20 MG TABLET PO SCH (09:13)
[2022-06-28 11:06] LABS: Hematocrit 35.6 VOL% (42.0-52.0); Hemoglobin 11.2 GM/DL (14.0-18.0)
[2022-06-28 12:28] VITALS: BP 143/79
== END 2022-06-28 14:12 | disposition home or self-care (01) ==
LOC: N.ED 00:13 → N.TELES 00:13 → SUATTDRO 02:44 → N.TELES 03:50
PROVIDERS: ADMIT Family Medicine; ATTEND Internal Medicine

== ENCOUNTER 2022-07-19 20:47 | Inpatient (IN) ==
[2022-07-19] MEDS ORDERED: MORPHINE 2 MG/1 ML SYRINGE IV ONE (21:05)
[2022-07-19] MEDS ORDERED: ONDANSETRON 4 MG/2 ML VIAL IV ONE (21:05)
[2022-07-19 21:52] LABS: Basophils # 0.1 10*3/uL (0.0-0.2); Basophils % 0.6 % (0.0-0.8); Eosinophils # 0.2 10*3/uL (0.0-0.87); Eosinophils % 1.8 % (0.00-10.9); Hematocrit 28.3 VOL% (42.0-52.0); Hemoglobin 8.7 GM/DL (14.0-18.0); Immature Granulocytes % 2.8 %; Immature Granulocytes Absolute 0.38 #; Lymphocytes # 1.6 10*3/uL (1.4-4.0); Lymphocytes % 11.8 % (21.2-54.2); Mean Corpuscular HGB Conc 30.7 GM/DL (32-36); Mean Corpuscular Volume 97.9 FL (87-102); Mean Platelet Volume 10.9 FL (9.6-12.0); Monocytes % 7.4 % (1.7-12.7); Neutrophils % 75.6 % (38.7-73.9); Platelet Count 292 T/CUMM (130-400); Red Blood Count 2.89 MC/CUMM (3.8-5.5); Red Cell Distribution Width 13.7 % (9.3-17.3); White Blood Count 13.5 T/CUMM (4-12)
[2022-07-19 22:02] LABS: PT Patient Result 11.5 SECS (10.1-12.1)
[2022-07-19 22:11] LABS: Alanine Aminotransferase 17 U/L (16-61); Albumin 1.6 G/DL (3.4-5.0); Alkaline Phosphatase 103 U/L (45-117); Aspartate Amino Transferase 13 U/L (0-37); Bilirubin,Total < 0.39 MG/DL (0.20-1.00); Blood Urea Nitrogen 23 MG/DL (7-18); Calcium 8.7 MG/DL (8.5-10.1); Carbon Dioxide 23 MMOL/L (21-32); Chloride 112 MMOL/L (98-107); Glucose 187 MG/DL (74-106); Osmolality,Calculated 289.3 MOS/KG (273-304); Potassium 5.4 MMOL/L (3.5-5.1); Sodium 141 MMOL/L (136-145); Total Protein 5.9 G/DL (6.4-8.2)
[2022-07-19] MEDS ORDERED: PIPERACILLIN/TAZOBACTAM 3,375 MG in SODIUM CHLORIDE 0.9% 100 ML IV STA (22:19)
[2022-07-19] MEDS ORDERED: VANCOMYCIN INJ 1,000 MG in SODIUM CHLORIDE 0.9% 250 ML IV STA (22:19)
[2022-07-19] MEDS ORDERED: hydrALAZINE 20 MG/1 ML VIAL IV PRN (22:58)
[2022-07-19] MEDS ORDERED: ALUMINUM/MAGNES/SIMETH MAX STR 30 ML UDCUP PO PRN (22:58)
[2022-07-19] MEDS ORDERED: ALBUTEROL 2.5 MG/3 ML NEB RESP TX PRN (22:58)
[2022-07-19] MEDS ORDERED: MORPHINE 2 MG/1 ML SYRINGE IV PRN (22:58)
[2022-07-19] MEDS: ONDANSETRON 4 MG/2 ML VIAL IV PRN (23:35)
[2022-07-19] MEDS: HYDROmorphone 1 MG/1 ML SYRINGE IV PRN (23:37)
[2022-07-20] MEDS: HYDROmorphone 1 MG/1 ML SYRINGE IV PRN ×5 (03:19→20:03)
[2022-07-20] MEDS ORDERED: PIPERACILLIN/TAZOBACTAM 2.25 MG in SODIUM CHLORIDE 0.9% 100 ML IV SCH (04:00)
[2022-07-20 05:08] LABS: Basophils # 0.1 10*3/uL (0.0-0.2); Basophils % 0.6 % (0.0-0.8); Eosinophils # 0.2 10*3/uL (0.0-0.87); Eosinophils % 1.7 % (0.00-10.9); Hematocrit 27.4 VOL% (42.0-52.0); Hemoglobin 8.3 GM/DL (14.0-18.0); Immature Granulocytes % 2.4 %; Lymphocytes # 1.8 10*3/uL (1.4-4.0); Lymphocytes % 14.1 % (21.2-54.2); Mean Corpuscular HGB Conc 30.3 GM/DL (32-36); Mean Platelet Volume 11.1 FL (9.6-12.0); Neutrophils % 73.2 % (38.7-73.9); Platelet Count 260 T/CUMM (130-400); Red Blood Count 2.74 MC/CUMM (3.8-5.5); Red Cell Distribution Width 13.9 % (9.3-17.3); White Blood Count 12.6 T/CUMM (4-12)
[2022-07-20 05:22] LABS: Calcium 8.6 MG/DL (8.5-10.1); Osmolality,Calculated 293.1 MOS/KG (273-304); Potassium 5.3 MMOL/L (3.5-5.1)
[2022-07-20 05:28] LABS: Folate 18.47 NG/ML (5.38-24.0); Vitamin B12 1637 PG/ML (211-911)
[2022-07-20] MEDS ORDERED: PIPERACILLIN/TAZOBACTAM 3,375 MG in SODIUM CHLORIDE 0.9% 100 ML IV SCH (06:00)
[2022-07-20 07:04] LABS: Sedimentation Rate-Westergren 128 MM/HR (0-20)
[2022-07-20] MEDS: CYANOCOBALAMIN 500 MCG TABLET PO SCH (08:56)
[2022-07-20] MEDS: carvediloL 12.5 MG TABLET PO SCH ×2 (08:56→20:03)
[2022-07-20] MEDS: CHOLECALCIFEROL 1,000 UNIT TABLET PO SCH (08:56)
[2022-07-20] MEDS: FERROUS SULFATE 325 MG TABLET PO SCH (08:56)
[2022-07-20] MEDS: PANTOPRAZOLE 40 MG TABLET PO SCH (08:57)
[2022-07-20] MEDS: DOCUSATE SODIUM 100 MG CAPSULE PO SCH ×2 (08:58→20:10)
[2022-07-20] MEDS: ISOSORBIDE MONONITRATE 30 MG TABLET PO SCH (08:58)
[2022-07-20] MEDS: GABAPENTIN 300 MG CAPSULE PO SCH ×3 (08:59→20:03)
[2022-07-20] MEDS: INSULIN GLARGINE 100 UNIT/ML SUBCUT SCH (08:59)
[2022-07-20] MEDS: ATORVASTATIN 80 MG TABLET PO SCH (08:59)
[2022-07-20] MEDS: HEPARIN 5,000 UNIT/1 ML VIAL SUBCUT SCH ×2 (08:59→20:04)
[2022-07-20] MEDS ORDERED: POTASSIUM CHLORIDE 20 MEQ TABLET PO SCH ×2 (09:00)
[2022-07-20] MEDS ORDERED: CLOPIDOGREL 75 MG TABLET PO SCH (09:00)
[2022-07-20] MEDS: INSULIN REGULAR 100 UNIT/ML SUBCUT SCH ×4 (09:00→20:04)
[2022-07-20 09:02] LABS: Hemoglobin A1 (Alkaline) 97.9 % (96.5-98.5); Hemoglobin A2 (Alkaline) 2.1 % (1.5-3.5)
[2022-07-20] MEDS: FUROSEMIDE 20 MG TABLET PO SCH (09:02)
[2022-07-20] MEDS ORDERED: SODIUM POLYSTYRENE SULFATE 15 GM/60 ML BOTTLE PO ONE (13:00)
[2022-07-20] MEDS: PIPERACILLIN/TAZOBACTAM 3,375 MG in SODIUM CHLORIDE 0.9% 100 ML IV SCH (16:16)
[2022-07-20] MEDS ORDERED: DAPAGLIFLOZIN 10 MG TABLET PO SCH (21:00)
[2022-07-21] MEDS: HYDROmorphone 1 MG/1 ML SYRINGE IV PRN ×4 (00:01→21:01)
[2022-07-21] MEDS: PIPERACILLIN/TAZOBACTAM 3,375 MG in SODIUM CHLORIDE 0.9% 100 ML IV SCH ×2 (04:07→18:07)
[2022-07-21 05:47] LABS: Basophils # 0.1 10*3/uL (0.0-0.2); Basophils % 0.5 % (0.0-0.8); Eosinophils # 0.2 10*3/uL (0.0-0.87); Eosinophils % 1.5 % (0.00-10.9); Hemoglobin 8.2 GM/DL (14.0-18.0); Immature Granulocytes % 2.1 %; Immature Granulocytes Absolute 0.27 #; Lymphocytes # 1.3 10*3/uL (1.4-4.0); Lymphocytes % 10.1 % (21.2-54.2); Mean Corpuscular HGB Conc 30.4 GM/DL (32-36); Mean Corpuscular Volume 98.2 FL (87-102); Mean Platelet Volume 11.1 FL (9.6-12.0); Monocytes % 7.9 % (1.7-12.7); Neutrophils % 77.9 % (38.7-73.9); Platelet Count 306 T/CUMM (130-400); Red Blood Count 2.75 MC/CUMM (3.8-5.5); White Blood Count 12.8 T/CUMM (4-12)
[2022-07-21 06:04] LABS: Alanine Aminotransferase 14 U/L (16-61); Albumin 1.5 G/DL (3.4-5.0); Alkaline Phosphatase 84 U/L (45-117); Aspartate Amino Transferase 11 U/L (0-37); Bilirubin,Total < 0.39 MG/DL (0.20-1.00); Blood Urea Nitrogen 25 MG/DL (7-18); Calcium 8.7 MG/DL (8.5-10.1); Carbon Dioxide 21 MMOL/L (21-32); Chloride 107 MMOL/L (98-107); Glucose 147 MG/DL (74-106); Osmolality,Calculated 281.7 MOS/KG (273-304); Potassium 4.9 MMOL/L (3.5-5.1); Sodium 138 MMOL/L (136-145); Total Protein 6.3 G/DL (6.4-8.2)
[2022-07-21] MEDS: DOCUSATE SODIUM 100 MG CAPSULE PO SCH ×2 (08:49→20:53)
[2022-07-21] MEDS: CHOLECALCIFEROL 1,000 UNIT TABLET PO SCH (08:49)
[2022-07-21] MEDS: PANTOPRAZOLE 40 MG TABLET PO SCH (08:49)
[2022-07-21] MEDS: ATORVASTATIN 80 MG TABLET PO SCH (08:49)
[2022-07-21] MEDS: FERROUS SULFATE 325 MG TABLET PO SCH (08:49)
[2022-07-21] MEDS: FUROSEMIDE 20 MG TABLET PO SCH (08:49)
[2022-07-21] MEDS: carvediloL 12.5 MG TABLET PO SCH ×2 (08:50→20:53)
[2022-07-21] MEDS: GABAPENTIN 300 MG CAPSULE PO SCH ×3 (08:50→20:53)
[2022-07-21] MEDS: ISOSORBIDE MONONITRATE 30 MG TABLET PO SCH (08:50)
[2022-07-21] MEDS: CYANOCOBALAMIN 500 MCG TABLET PO SCH (08:50)
[2022-07-21] MEDS: HEPARIN 5,000 UNIT/1 ML VIAL SUBCUT SCH ×2 (08:50→20:54)
[2022-07-21] MEDS: INSULIN REGULAR 100 UNIT/ML SUBCUT SCH ×4 (08:57→20:54)
[2022-07-21] MEDS: INSULIN GLARGINE 100 UNIT/ML SUBCUT SCH (08:57)
[2022-07-21] MEDS: NYSTATIN 500,000 UNIT/5 ML UDCUP PO SCH ×3 (13:43→20:53)
[2022-07-22] MEDS: HYDROmorphone 1 MG/1 ML SYRINGE IV PRN ×7 (00:13→21:15)
[2022-07-22] MEDS: PIPERACILLIN/TAZOBACTAM 3,375 MG in SODIUM CHLORIDE 0.9% 100 ML IV SCH ×2 (05:02→16:54)
[2022-07-22 06:21] LABS: Basophils # 0.1 10*3/uL (0.0-0.2); Basophils % 0.4 % (0.0-0.8); Eosinophils # 0.2 10*3/uL (0.0-0.87); Eosinophils % 1.1 % (0.00-10.9); Hematocrit 25.3 VOL% (42.0-52.0); Hemoglobin 7.8 GM/DL (14.0-18.0); Immature Granulocytes % 1.8 %; Immature Granulocytes Absolute 0.25 #; Lymphocytes # 1.5 10*3/uL (1.4-4.0); Lymphocytes % 10.7 % (21.2-54.2); Mean Corpuscular HGB Conc 30.8 GM/DL (32-36); Mean Corpuscular Volume 96.9 FL (87-102); Monocytes # 1.1 10*3/uL (0.11-0.8); Monocytes % 7.7 % (1.7-12.7); Neutrophils % 78.3 % (38.7-73.9); Platelet Count 302 T/CUMM (130-400); Red Blood Count 2.61 MC/CUMM (3.8-5.5); Red Cell Distribution Width 13.9 % (9.3-17.3); White Blood Count 13.7 T/CUMM (4-12)
[2022-07-22 06:58] LABS: Alanine Aminotransferase 15 U/L (16-61); Albumin 1.6 G/DL (3.4-5.0); Alkaline Phosphatase 80 U/L (45-117); Aspartate Amino Transferase 14 U/L (0-37); Bilirubin,Total < 0.39 MG/DL (0.20-1.00); Blood Urea Nitrogen 29 MG/DL (7-18); Calcium 8.5 MG/DL (8.5-10.1); Carbon Dioxide 23 MMOL/L (21-32); Chloride 106 MMOL/L (98-107); Glucose 196 MG/DL (74-106); Osmolality,Calculated 285.7 MOS/KG (273-304); Potassium 4.5 MMOL/L (3.5-5.1); Sodium 138 MMOL/L (136-145); Total Protein 6.7 G/DL (6.4-8.2)
[2022-07-22] MEDS ORDERED: LIDOCAINE 1% 20 ML VIAL MISC INJ ONE (09:36)
[2022-07-22] MEDS: FUROSEMIDE 20 MG TABLET PO SCH (10:12)
[2022-07-22] MEDS: PANTOPRAZOLE 40 MG TABLET PO SCH (10:12)
[2022-07-22] MEDS: HEPARIN 5,000 UNIT/1 ML VIAL SUBCUT SCH ×2 (10:12→20:48)
[2022-07-22] MEDS: NYSTATIN 500,000 UNIT/5 ML UDCUP PO SCH ×4 (10:12→20:48)
[2022-07-22] MEDS: GABAPENTIN 300 MG CAPSULE PO SCH ×3 (10:12→20:48)
[2022-07-22] MEDS: CHOLECALCIFEROL 1,000 UNIT TABLET PO SCH (10:12)
[2022-07-22] MEDS: CYANOCOBALAMIN 500 MCG TABLET PO SCH (10:12)
[2022-07-22] MEDS: ISOSORBIDE MONONITRATE 30 MG TABLET PO SCH (10:12)
[2022-07-22] MEDS: carvediloL 12.5 MG TABLET PO SCH ×2 (10:12→20:49)
[2022-07-22] MEDS: FERROUS SULFATE 325 MG TABLET PO SCH (10:12)
[2022-07-22] MEDS: DOCUSATE SODIUM 100 MG CAPSULE PO SCH ×2 (10:12→20:48)
[2022-07-22] MEDS: INSULIN GLARGINE 100 UNIT/ML SUBCUT SCH (10:12)
[2022-07-22] MEDS: INSULIN REGULAR 100 UNIT/ML SUBCUT SCH ×4 (10:12→20:48)
[2022-07-22] MEDS: ATORVASTATIN 80 MG TABLET PO SCH (10:12)
[2022-07-22] MEDS: ONDANSETRON 4 MG/2 ML VIAL IV PRN ×2 (11:27→21:16)
[2022-07-23] MEDS: HYDROmorphone 1 MG/1 ML SYRINGE IV PRN ×5 (00:15→21:34)
[2022-07-23] MEDS: ONDANSETRON 4 MG/2 ML VIAL IV PRN (01:44)
[2022-07-23] MEDS: PIPERACILLIN/TAZOBACTAM 3,375 MG in SODIUM CHLORIDE 0.9% 100 ML IV SCH ×2 (04:16→17:45)
[2022-07-23 05:31] LABS: Basophils # 0.1 10*3/uL (0.0-0.2); Basophils % 0.5 % (0.0-0.8); Eosinophils # 0.3 10*3/uL (0.0-0.87); Eosinophils % 2.5 % (0.00-10.9); Hematocrit 25.8 VOL% (42.0-52.0); Hemoglobin 7.7 GM/DL (14.0-18.0); Immature Granulocytes % 2.2 %; Immature Granulocytes Absolute 0.29 #; Lymphocytes # 1.5 10*3/uL (1.4-4.0); Lymphocytes % 11.7 % (21.2-54.2); Mean Corpuscular HGB Conc 29.8 GM/DL (32-36); Mean Corpuscular Volume 97.7 FL (87-102); Mean Platelet Volume 10.8 FL (9.6-12.0); Monocytes % 7.8 % (1.7-12.7); NRBC # 0.02 10*3/uL; Neutrophils % 75.3 % (38.7-73.9); Platelet Count 285 T/CUMM (130-400); Red Blood Count 2.64 MC/CUMM (3.8-5.5); Red Cell Distribution Width 13.7 % (9.3-17.3)
[2022-07-23 06:03] LABS: Alanine Aminotransferase 14 U/L (16-61); Albumin 1.7 G/DL (3.4-5.0); Alkaline Phosphatase 76 U/L (45-117); Aspartate Amino Transferase 11 U/L (0-37); Bilirubin,Total < 0.39 MG/DL (0.20-1.00); Blood Urea Nitrogen 32 MG/DL (7-18); Calcium 8.7 MG/DL (8.5-10.1); Carbon Dioxide 22 MMOL/L (21-32); Chloride 105 MMOL/L (98-107); Glucose 295 MG/DL (74-106); Osmolality,Calculated 290.8 MOS/KG (273-304); Potassium 4.2 MMOL/L (3.5-5.1); Sodium 137 MMOL/L (136-145); Total Protein 6.4 G/DL (6.4-8.2)
[2022-07-23] MEDS: DOCUSATE SODIUM 100 MG CAPSULE PO SCH ×2 (09:09→21:33)
[2022-07-23] MEDS: INSULIN REGULAR 100 UNIT/ML SUBCUT SCH ×4 (09:09→21:34)
[2022-07-23] MEDS: carvediloL 12.5 MG TABLET PO SCH ×2 (09:09→21:33)
[2022-07-23] MEDS: FUROSEMIDE 20 MG TABLET PO SCH (09:10)
[2022-07-23] MEDS: FERROUS SULFATE 325 MG TABLET PO SCH (09:10)
[2022-07-23] MEDS: ATORVASTATIN 80 MG TABLET PO SCH (09:10)
[2022-07-23] MEDS: INSULIN GLARGINE 100 UNIT/ML SUBCUT SCH (09:10)
[2022-07-23] MEDS: HEPARIN 5,000 UNIT/1 ML VIAL SUBCUT SCH ×2 (09:10→21:34)
[2022-07-23] MEDS: ISOSORBIDE MONONITRATE 30 MG TABLET PO SCH (09:10)
[2022-07-23] MEDS: NYSTATIN 500,000 UNIT/5 ML UDCUP PO SCH ×4 (09:11→21:33)
[2022-07-23] MEDS: CHOLECALCIFEROL 1,000 UNIT TABLET PO SCH (09:11)
[2022-07-23] MEDS: PANTOPRAZOLE 40 MG TABLET PO SCH (09:11)
[2022-07-23] MEDS: GABAPENTIN 300 MG CAPSULE PO SCH ×3 (09:11→21:33)
[2022-07-23] MEDS: CYANOCOBALAMIN 500 MCG TABLET PO SCH (09:11)
[2022-07-23] MEDS ORDERED: LACTATED RINGERS 1,000 ML IV SCH (09:30)
[2022-07-23] MEDS ORDERED: KETAMINE 500 MG/10 ML VIAL ONE (11:46)
[2022-07-23] MEDS ORDERED: fentaNYL 100 MCG/2 ML VIAL ONE (12:07)
[2022-07-23] MEDS ORDERED: BUPIVACAINE MPF 0.25% 10 ML VIAL ONE (12:12)
[2022-07-23] MEDS ORDERED: GLUCAGON 1 MG VIAL IM PRN (17:39)
[2022-07-23] MEDS ORDERED: DEXTROSE 10% 250 ML BAG IV PRN (17:45)
[2022-07-24] MEDS: HYDROmorphone 1 MG/1 ML SYRINGE IV PRN ×7 (00:45→23:39)
[2022-07-24 05:35] LABS: Basophils # 0.1 10*3/uL (0.0-0.2); Basophils % 0.7 % (0.0-0.8); Eosinophils # 0.4 10*3/uL (0.0-0.87); Eosinophils % 3.4 % (0.00-10.9); Hematocrit 25.7 VOL% (42.0-52.0); Hemoglobin 7.8 GM/DL (14.0-18.0); Immature Granulocytes % 2.7 %; Immature Granulocytes Absolute 0.33 #; Lymphocytes # 1.8 10*3/uL (1.4-4.0); Lymphocytes % 14.3 % (21.2-54.2); Mean Corpuscular HGB Conc 30.4 GM/DL (32-36); Mean Corpuscular Volume 98.5 FL (87-102); Mean Platelet Volume 10.7 FL (9.6-12.0); Monocytes # 0.8 10*3/uL (0.11-0.8); Monocytes % 6.4 % (1.7-12.7); Neutrophils % 72.5 % (38.7-73.9); Platelet Count 312 T/CUMM (130-400); Red Blood Count 2.61 MC/CUMM (3.8-5.5); Red Cell Distribution Width 13.9 % (9.3-17.3); White Blood Count 12.4 T/CUMM (4-12)
[2022-07-24] MEDS: PIPERACILLIN/TAZOBACTAM 3,375 MG in SODIUM CHLORIDE 0.9% 100 ML IV SCH ×2 (05:40→17:00)
[2022-07-24 05:59] LABS: Alanine Aminotransferase 15 U/L (16-61); Albumin 1.7 G/DL (3.4-5.0); Alkaline Phosphatase 77 U/L (45-117); Aspartate Amino Transferase 12 U/L (0-37); Bilirubin,Total < 0.39 MG/DL (0.20-1.00); Blood Urea Nitrogen 29 MG/DL (7-18); Calcium 8.4 MG/DL (8.5-10.1); Carbon Dioxide 22 MMOL/L (21-32); Chloride 110 MMOL/L (98-107); Glucose 278 MG/DL (74-106); Osmolality,Calculated 296.3 MOS/KG (273-304); Potassium 4.5 MMOL/L (3.5-5.1); Sodium 141 MMOL/L (136-145); Total Protein 6.5 G/DL (6.4-8.2)
[2022-07-24] MEDS: ATORVASTATIN 80 MG TABLET PO SCH (08:29)
[2022-07-24] MEDS: PANTOPRAZOLE 40 MG TABLET PO SCH (08:29)
[2022-07-24] MEDS: NYSTATIN 500,000 UNIT/5 ML UDCUP PO SCH ×4 (08:30→20:10)
[2022-07-24] MEDS: GABAPENTIN 300 MG CAPSULE PO SCH ×3 (08:30→20:09)
[2022-07-24] MEDS: CYANOCOBALAMIN 500 MCG TABLET PO SCH (08:30)
[2022-07-24] MEDS: carvediloL 12.5 MG TABLET PO SCH ×2 (08:31→20:10)
[2022-07-24] MEDS: FERROUS SULFATE 325 MG TABLET PO SCH (08:31)
[2022-07-24] MEDS: CHOLECALCIFEROL 1,000 UNIT TABLET PO SCH (08:32)
[2022-07-24] MEDS: INSULIN GLARGINE 100 UNIT/ML SUBCUT SCH (08:33)
[2022-07-24] MEDS: DOCUSATE SODIUM 100 MG CAPSULE PO SCH ×2 (08:33→20:10)
[2022-07-24] MEDS: ISOSORBIDE MONONITRATE 30 MG TABLET PO SCH (08:41)
[2022-07-24] MEDS: INSULIN REGULAR 100 UNIT/ML SUBCUT SCH ×4 (08:41→20:09)
[2022-07-24] MEDS: HEPARIN 5,000 UNIT/1 ML VIAL SUBCUT SCH ×2 (08:42→20:09)
[2022-07-24] MEDS: ONDANSETRON 4 MG/2 ML VIAL IV PRN (10:22)
[2022-07-25] MEDS: HYDROmorphone 1 MG/1 ML SYRINGE IV PRN ×7 (02:46→21:20)
[2022-07-25 05:02] LABS: Basophils # 0.1 10*3/uL (0.0-0.2); Basophils % 0.6 % (0.0-0.8); Eosinophils # 0.5 10*3/uL (0.0-0.87); Eosinophils % 4.2 % (0.00-10.9); Hematocrit 22.6 VOL% (42.0-52.0); Hemoglobin 6.7 GM/DL (14.0-18.0); Immature Granulocytes Absolute 0.24 #; Lymphocytes # 1.6 10*3/uL (1.4-4.0); Lymphocytes % 13.1 % (21.2-54.2); Mean Corpuscular HGB Conc 29.6 GM/DL (32-36); Mean Corpuscular Volume 99.1 FL (87-102); Mean Platelet Volume 10.9 FL (9.6-12.0); Monocytes # 0.8 10*3/uL (0.11-0.8); Monocytes % 6.3 % (1.7-12.7); Neutrophils % 73.8 % (38.7-73.9); Platelet Count 280 T/CUMM (130-400); Red Blood Count 2.28 MC/CUMM (3.8-5.5); Red Cell Distribution Width 14.1 % (9.3-17.3); White Blood Count 12.3 T/CUMM (4-12)
[2022-07-25] MEDS: PIPERACILLIN/TAZOBACTAM 3,375 MG in SODIUM CHLORIDE 0.9% 100 ML IV SCH (05:38)
[2022-07-25 05:42] LABS: Alanine Aminotransferase 13 U/L (16-61); Albumin 1.6 G/DL (3.4-5.0); Alkaline Phosphatase 65 U/L (45-117); Aspartate Amino Transferase 10 U/L (0-37); Bilirubin,Total < 0.39 MG/DL (0.20-1.00); Blood Urea Nitrogen 27 MG/DL (7-18); Calcium 8.4 MG/DL (8.5-10.1); Carbon Dioxide 19 MMOL/L (21-32); Chloride 109 MMOL/L (98-107); Glucose 214 MG/DL (74-106); Osmolality,Calculated 285.7 MOS/KG (273-304); Potassium 4.3 MMOL/L (3.5-5.1); Sodium 138 MMOL/L (136-145); Total Protein 5.9 G/DL (6.4-8.2)
[2022-07-25] MEDS: INSULIN REGULAR 100 UNIT/ML SUBCUT SCH ×4 (08:56→21:20)
[2022-07-25] MEDS: PANTOPRAZOLE 40 MG TABLET PO SCH (08:57)
[2022-07-25] MEDS: ATORVASTATIN 80 MG TABLET PO SCH (08:57)
[2022-07-25] MEDS: HEPARIN 5,000 UNIT/1 ML VIAL SUBCUT SCH ×2 (08:57→21:19)
[2022-07-25] MEDS: ISOSORBIDE MONONITRATE 30 MG TABLET PO SCH (08:58)
[2022-07-25] MEDS: carvediloL 12.5 MG TABLET PO SCH ×2 (08:58→21:19)
[2022-07-25] MEDS: GABAPENTIN 300 MG CAPSULE PO SCH ×3 (08:58→21:19)
[2022-07-25] MEDS: CYANOCOBALAMIN 500 MCG TABLET PO SCH (08:58)
[2022-07-25] MEDS: SODIUM BICARBONATE 650 MG TABLET PO SCH ×2 (08:58→21:19)
[2022-07-25] MEDS: CHOLECALCIFEROL 1,000 UNIT TABLET PO SCH (08:58)
[2022-07-25] MEDS: FERROUS SULFATE 325 MG TABLET PO SCH (08:59)
[2022-07-25] MEDS: NYSTATIN 500,000 UNIT/5 ML UDCUP PO SCH ×4 (08:59→21:19)
[2022-07-25] MEDS: DOCUSATE SODIUM 100 MG CAPSULE PO SCH ×2 (09:02→21:22)
[2022-07-25] MEDS: INSULIN GLARGINE 100 UNIT/ML SUBCUT SCH (09:02)
[2022-07-25] MEDS ORDERED: SODIUM CHLORIDE 0.9% 1,000 ML IV PRN (11:51)
[2022-07-25] MEDS: CEFUROXIME 500 MG TABLET PO SCH ×2 (12:05→21:19)
[2022-07-26] MEDS: HYDROmorphone 1 MG/1 ML SYRINGE IV PRN ×4 (00:25→12:11)
[2022-07-26 05:11] LABS: Basophils # 0.1 10*3/uL (0.0-0.2); Basophils % 0.8 % (0.0-0.8); Eosinophils # 0.5 10*3/uL (0.0-0.87); Hematocrit 30.3 VOL% (42.0-52.0); Hemoglobin 9.2 GM/DL (14.0-18.0); Immature Granulocytes Absolute 0.36 #; Lymphocytes # 1.6 10*3/uL (1.4-4.0); Lymphocytes % 13.1 % (21.2-54.2); Mean Corpuscular HGB Conc 30.4 GM/DL (32-36); Mean Corpuscular Volume 97.4 FL (87-102); Mean Platelet Volume 10.7 FL (9.6-12.0); Monocytes # 0.9 10*3/uL (0.11-0.8); Monocytes % 7.5 % (1.7-12.7); NRBC # 0.02 10*3/uL; Neutrophils % 71.6 % (38.7-73.9); Platelet Count 297 T/CUMM (130-400); Red Blood Count 3.11 MC/CUMM (3.8-5.5); Red Cell Distribution Width 15.3 % (9.3-17.3); White Blood Count 11.9 T/CUMM (4-12)
[2022-07-26 05:33] LABS: Calcium 8.8 MG/DL (8.5-10.1); Osmolality,Calculated 286.4 MOS/KG (273-304); Potassium 4.4 MMOL/L (3.5-5.1)
[2022-07-26 06:00] LABS: INR 1.1; PT Patient Result 12.1 SECS (10.1-12.1)
[2022-07-26 08:49] VITALS: BP 151/78
[2022-07-26] MEDS: CEFUROXIME 500 MG TABLET PO SCH (09:06)
[2022-07-26] MEDS: SODIUM BICARBONATE 650 MG TABLET PO SCH (09:06)
[2022-07-26] MEDS: GABAPENTIN 300 MG CAPSULE PO SCH (09:07)
[2022-07-26] MEDS: NYSTATIN 500,000 UNIT/5 ML UDCUP PO SCH (09:07)
[2022-07-26] MEDS: ISOSORBIDE MONONITRATE 30 MG TABLET PO SCH (09:07)
[2022-07-26] MEDS: PANTOPRAZOLE 40 MG TABLET PO SCH (09:07)
[2022-07-26] MEDS: ATORVASTATIN 80 MG TABLET PO SCH (09:07)
[2022-07-26] MEDS: CHOLECALCIFEROL 1,000 UNIT TABLET PO SCH (09:07)
[2022-07-26] MEDS: carvediloL 12.5 MG TABLET PO SCH (09:07)
[2022-07-26] MEDS: CYANOCOBALAMIN 500 MCG TABLET PO SCH (09:07)
[2022-07-26] MEDS: FERROUS SULFATE 325 MG TABLET PO SCH (09:07)
[2022-07-26] MEDS: DOCUSATE SODIUM 100 MG CAPSULE PO SCH (09:08)
[2022-07-26] MEDS: INSULIN REGULAR 100 UNIT/ML SUBCUT SCH ×2 (09:08→12:10)
[2022-07-26] MEDS: HEPARIN 5,000 UNIT/1 ML VIAL SUBCUT SCH (09:08)
[2022-07-26] MEDS: INSULIN GLARGINE 100 UNIT/ML SUBCUT SCH (09:09)
== END 2022-07-26 12:25 | disposition home health service (06) | DRG 565 ==
LOC: N.ED 20:47 → N.EDINP 22:58 → SUATTDRO 22:58 → N.5E 23:28
PROVIDERS: ADMIT Family Medicine; ATTEND Internal Medicine

== ENCOUNTER 2022-07-28 20:19 | Inpatient (IN) ==
[2022-07-28] MEDS ORDERED: FUROSEMIDE 40 MG/4 ML VIAL IV STA (20:37)
[2022-07-28] MEDS ORDERED: NITROGLYCERIN 2% OINT 1 INCH/GM PACK TOP STA (20:37)
[2022-07-28 20:41] LABS: Basophils # 0.1 10*3/uL (0.0-0.2); Basophils % 0.9 % (0.0-0.8); Eosinophils # 0.4 10*3/uL (0.0-0.87); Eosinophils % 3.1 % (0.00-10.9); Hematocrit 34.6 VOL% (42.0-52.0); Hemoglobin 10.6 GM/DL (14.0-18.0); Immature Granulocytes % 1.8 %; Immature Granulocytes Absolute 0.25 #; Lymphocytes # 1.8 10*3/uL (1.4-4.0); Lymphocytes % 12.9 % (21.2-54.2); Mean Corpuscular HGB Conc 30.6 GM/DL (32-36); Mean Corpuscular Volume 96.9 FL (87-102); Mean Platelet Volume 10.4 FL (9.6-12.0); Monocytes # 0.8 10*3/uL (0.11-0.8); Monocytes % 5.3 % (1.7-12.7); Platelet Count 338 T/CUMM (130-400); Red Blood Count 3.57 MC/CUMM (3.8-5.5); Red Cell Distribution Width 15.2 % (9.3-17.3); White Blood Count 14.1 T/CUMM (4-12)
[2022-07-28 20:52] LABS: INR 1.1; PT Patient Result 12.4 SECS (10.1-12.1); Partial Thromboplastin Time 27.9 SECS (23.7-32.9)
[2022-07-28 21:02] LABS: Alanine Aminotransferase 17 U/L (16-61); Albumin 2.1 G/DL (3.4-5.0); Alkaline Phosphatase 92 U/L (45-117); Aspartate Amino Transferase 18 U/L (0-37); Bilirubin,Total < 0.39 MG/DL (0.20-1.00); Blood Urea Nitrogen 22 MG/DL (7-18); Calcium 8.2 MG/DL (8.5-10.1); Carbon Dioxide 24 MMOL/L (21-32); Chloride 112 MMOL/L (98-107); Glucose 236 MG/DL (74-106); Potassium 4.9 MMOL/L (3.5-5.1); Sodium 143 MMOL/L (136-145); Total Protein 6.3 G/DL (6.4-8.2)
[2022-07-28 21:05] LABS: Arterial Base Excess iSTAT -4 MMOL/L (-2.5-2.5); Arterial Bicarbonate iSTAT 21.8 MMOL/L (20-26); Arterial O2 Saturation iSTAT 100 % (95-100); Arterial PCO2 iSTAT 40 MM HG (35-48); Arterial PO2 iSTAT 188 MM HG (80-95); Arterial Total CO2 iSTAT 23 MMO/L (23-27); Arterial pH iSTAT 7.344 (7.35-7.45)
[2022-07-28] MEDS ORDERED: ONDANSETRON 4 MG/2 ML VIAL IV STA (21:08)
[2022-07-28] MEDS ORDERED: LEVOFLOXACIN INJ 500 MG/100 ML PREMIX IV ONE (21:09)
[2022-07-28] MEDS ORDERED: MORPHINE 2 MG/1 ML SYRINGE IV STA (21:10)
[2022-07-28] MEDS ORDERED: ONDANSETRON 4 MG/2 ML VIAL IV ONE (21:10)
[2022-07-28] MEDS ORDERED: VANCOMYCIN INJ 1,000 MG in SODIUM CHLORIDE 0.9% 250 ML IV STA ×2 (21:11→22:15)
[2022-07-28] MEDS ORDERED: PIPERACILLIN/TAZOBACTAM 3,375 MG in SODIUM CHLORIDE 0.9% 100 ML IV STA (21:11)
[2022-07-28] MEDS ORDERED: HYDROmorphone 1 MG/1 ML SYRINGE IV STA (21:12)
[2022-07-28] MEDS ORDERED: hydrALAZINE 20 MG/1 ML VIAL IV STA (21:29)
[2022-07-28] MEDS ORDERED: hydrALAZINE 20 MG/1 ML VIAL IV PRN (21:55)
[2022-07-28] MEDS ORDERED: ACETAMINOPHEN 325 MG TABLET PO PRN (21:55)
[2022-07-28] MEDS ORDERED: GLUCAGON 1 MG VIAL IM PRN (21:55)
[2022-07-28] MEDS ORDERED: DEXTROSE 10% 250 ML BAG IV PRN (22:07)
[2022-07-28] MEDS ORDERED: VANCOMYCIN INJ 1,250 MG in SODIUM CHLORIDE 0.9% 250 ML IV PRN (22:17)
[2022-07-28] MEDS ORDERED: ONDANSETRON 4 MG TABLET PO PRN (22:37)
[2022-07-28] MEDS ORDERED: NITROGLYCERIN SL 0.4 MG TABLET SL PRN (22:37)
[2022-07-28] MEDS: HYDROmorphone 1 MG/1 ML SYRINGE IV PRN (23:49)
[2022-07-29 00:29] LABS: Basophils # 0.1 10*3/uL (0.0-0.2); Basophils % 0.7 % (0.0-0.8); Eosinophils # 0.3 10*3/uL (0.0-0.87); Eosinophils % 1.9 % (0.00-10.9); Hematocrit 33.2 VOL% (42.0-52.0); Hemoglobin 10.2 GM/DL (14.0-18.0); Immature Granulocytes % 1.5 %; Immature Granulocytes Absolute 0.22 #; Lymphocytes # 1.4 10*3/uL (1.4-4.0); Lymphocytes % 9.7 % (21.2-54.2); Mean Corpuscular HGB Conc 30.7 GM/DL (32-36); Mean Corpuscular Volume 96.2 FL (87-102); Mean Platelet Volume 10.3 FL (9.6-12.0); Monocytes # 0.8 10*3/uL (0.11-0.8); Monocytes % 5.6 % (1.7-12.7); Neutrophils % 80.6 % (38.7-73.9); Platelet Count 324 T/CUMM (130-400); Red Blood Count 3.45 MC/CUMM (3.8-5.5); White Blood Count 14.9 T/CUMM (4-12)
[2022-07-29] MEDS: ONDANSETRON 4 MG/2 ML VIAL IV PRN ×2 (00:36→09:18)
[2022-07-29] MEDS: AZITHROMYCIN INJ 500 MG in SODIUM CHLORIDE 0.9% 250 ML IV SCH (00:36)
[2022-07-29] MEDS: HYDROmorphone 1 MG/1 ML SYRINGE IV PRN ×7 (02:36→22:06)
[2022-07-29] MEDS: PIPERACILLIN/TAZOBACTAM 3,375 MG in SODIUM CHLORIDE 0.9% 100 ML IV SCH ×2 (05:57→13:24)
[2022-07-29 07:30] LABS: Calcium 8.6 MG/DL (8.5-10.1); Osmolality,Calculated 288.3 MOS/KG (273-304); Potassium 4.6 MMOL/L (3.5-5.1)
[2022-07-29] MEDS: FUROSEMIDE 40 MG/4 ML VIAL IV SCH ×2 (09:20→15:39)
[2022-07-29] MEDS: CLOPIDOGREL 75 MG TABLET PO SCH (09:22)
[2022-07-29] MEDS: ATORVASTATIN 80 MG TABLET PO SCH (09:22)
[2022-07-29] MEDS: CYANOCOBALAMIN 500 MCG TABLET PO SCH (09:22)
[2022-07-29] MEDS: ISOSORBIDE MONONITRATE 30 MG TABLET PO SCH (09:22)
[2022-07-29] MEDS: NYSTATIN 500,000 UNIT/5 ML UDCUP PO SCH ×4 (09:22→20:56)
[2022-07-29] MEDS: GABAPENTIN 300 MG CAPSULE PO SCH ×3 (09:22→20:56)
[2022-07-29] MEDS: PANTOPRAZOLE 40 MG TABLET PO SCH (09:22)
[2022-07-29] MEDS: carvediloL 12.5 MG TABLET PO SCH ×2 (09:22→20:56)
[2022-07-29] MEDS: FERROUS SULFATE 325 MG TABLET PO SCH (09:22)
[2022-07-29] MEDS: CHOLECALCIFEROL 1,000 UNIT TABLET PO SCH (09:23)
[2022-07-29] MEDS: INSULIN LISPRO 100 UNIT/ML SUBCUT SCH ×4 (09:23→20:58)
[2022-07-29] MEDS ORDERED: LACTULOSE 20 GM/30 ML UDCUP PO ONE (14:55)
[2022-07-29] MEDS: levETIRAcetam 500 MG TABLET PO SCH ×2 (15:38→20:55)
[2022-07-29 15:46] LABS: % Iron Saturation 5.9 % (18-50)
[2022-07-29 15:53] LABS: Folate 15.02 NG/ML (5.38-24.0)
[2022-07-29 15:55] LABS: Free T4 (Free Thyroxine) 0.88 NG/DL (0.76-1.46); Thyroid Stimulating Hormone 0.517 uIU/ml (0.358-3.74)
[2022-07-29] MEDS: ALBUTEROL/IPRATROPIUM 3 ML NEB RESP TX SCH ×2 (17:25→19:26)
[2022-07-29] MEDS: LACTULOSE 20 GM/30 ML UDCUP PO SCH (20:57)
[2022-07-29] MEDS ORDERED: VANCOMYCIN INJ 1,250 MG in SODIUM CHLORIDE 0.9% 250 ML IV SCH (22:00)
[2022-07-30] MEDS: PIPERACILLIN/TAZOBACTAM 3,375 MG in SODIUM CHLORIDE 0.9% 100 ML IV SCH ×4 (00:55→23:30)
[2022-07-30] MEDS: ALBUTEROL/IPRATROPIUM 3 ML NEB RESP TX SCH ×4 (01:02→19:33)
[2022-07-30] MEDS: HYDROmorphone 1 MG/1 ML SYRINGE IV PRN ×7 (01:23→22:00)
[2022-07-30 05:40] LABS: Basophils # 0.1 10*3/uL (0.0-0.2); Basophils % 0.7 % (0.0-0.8); Eosinophils # 0.4 10*3/uL (0.0-0.87); Eosinophils % 2.5 % (0.00-10.9); Hematocrit 31.4 VOL% (42.0-52.0); Hemoglobin 9.3 GM/DL (14.0-18.0); Immature Granulocytes % 0.8 %; Immature Granulocytes Absolute 0.12 #; Lymphocytes % 6.6 % (21.2-54.2); Mean Corpuscular HGB Conc 29.6 GM/DL (32-36); Mean Corpuscular Volume 100.6 FL (87-102); Mean Platelet Volume 10.9 FL (9.6-12.0); Monocytes # 0.7 10*3/uL (0.11-0.8); Neutrophils % 84.4 % (38.7-73.9); Platelet Count 249 T/CUMM (130-400); Red Blood Count 3.12 MC/CUMM (3.8-5.5); Red Cell Distribution Width 15.5 % (9.3-17.3); White Blood Count 14.3 T/CUMM (4-12)
[2022-07-30 06:12] LABS: Albumin 1.8 G/DL (3.4-5.0); Bilirubin,Total 0.4 MG/DL (0.20-1.00); Calcium 8.5 MG/DL (8.5-10.1); Osmolality,Calculated 286.7 MOS/KG (273-304); Potassium 4.7 MMOL/L (3.5-5.1); Total Protein 6.2 G/DL (6.4-8.2)
[2022-07-30] MEDS: AZITHROMYCIN INJ 500 MG in SODIUM CHLORIDE 0.9% 250 ML IV SCH (06:20)
[2022-07-30] MEDS ORDERED: VANCOMYCIN INJ 1,750 MG in SODIUM CHLORIDE 0.9% 500 ML IV PRN (08:00)
[2022-07-30] MEDS ORDERED: VANCOMYCIN INJ 1,250 MG in SODIUM CHLORIDE 0.9% 250 ML IV PRN (08:00)
[2022-07-30] MEDS: PANTOPRAZOLE 40 MG TABLET PO SCH (09:14)
[2022-07-30] MEDS: ISOSORBIDE MONONITRATE 30 MG TABLET PO SCH (09:14)
[2022-07-30] MEDS: CYANOCOBALAMIN 500 MCG TABLET PO SCH (09:14)
[2022-07-30] MEDS: NYSTATIN 500,000 UNIT/5 ML UDCUP PO SCH ×4 (09:14→21:43)
[2022-07-30] MEDS: CLOPIDOGREL 75 MG TABLET PO SCH (09:14)
[2022-07-30] MEDS: GABAPENTIN 300 MG CAPSULE PO SCH ×3 (09:15→21:42)
[2022-07-30] MEDS: CHOLECALCIFEROL 1,000 UNIT TABLET PO SCH (09:15)
[2022-07-30] MEDS: FERROUS SULFATE 325 MG TABLET PO SCH (09:15)
[2022-07-30] MEDS: levETIRAcetam 500 MG TABLET PO SCH ×2 (09:15→21:42)
[2022-07-30] MEDS: carvediloL 12.5 MG TABLET PO SCH ×2 (09:15→21:43)
[2022-07-30] MEDS: ATORVASTATIN 80 MG TABLET PO SCH (09:15)
[2022-07-30] MEDS: LACTULOSE 20 GM/30 ML UDCUP PO SCH (09:15)
[2022-07-30] MEDS: INSULIN LISPRO 100 UNIT/ML SUBCUT SCH ×4 (09:16→21:58)
[2022-07-30] MEDS: FUROSEMIDE 40 MG/4 ML VIAL IV SCH (09:17)
[2022-07-30] MEDS ORDERED: LACTULOSE 20 GM/30 ML UDCUP PO PRN (12:17)
[2022-07-30] MEDS: FERRIC GLUCONATE COMPLEX 125 MG in SODIUM CHLORIDE 0.9% 100 ML IV SCH (15:17)
[2022-07-30] MEDS: LACTOBACILLUS ACIDOPHILUS/BULGARICUS 1 PACKET PO SCH ×2 (15:17→21:43)
[2022-07-31] MEDS: ALBUTEROL/IPRATROPIUM 3 ML NEB RESP TX SCH ×6 (01:10→23:36)
[2022-07-31] MEDS: HYDROmorphone 1 MG/1 ML SYRINGE IV PRN ×7 (01:30→21:20)
[2022-07-31 05:26] LABS: Basophils # 0.1 10*3/uL (0.0-0.2); Basophils % 0.5 % (0.0-0.8); Eosinophils # 0.3 10*3/uL (0.0-0.87); Eosinophils % 2.9 % (0.00-10.9); Hematocrit 29.4 VOL% (42.0-52.0); Hemoglobin 8.7 GM/DL (14.0-18.0); Immature Granulocytes % 0.8 %; Immature Granulocytes Absolute 0.09 #; Lymphocytes # 0.6 10*3/uL (1.4-4.0); Lymphocytes % 5.3 % (21.2-54.2); Mean Corpuscular HGB Conc 29.6 GM/DL (32-36); Mean Corpuscular Volume 97.7 FL (87-102); Mean Platelet Volume 11.1 FL (9.6-12.0); Monocytes # 0.6 10*3/uL (0.11-0.8); Neutrophils % 85.5 % (38.7-73.9); Platelet Count 208 T/CUMM (130-400); Red Blood Count 3.01 MC/CUMM (3.8-5.5); Red Cell Distribution Width 15.2 % (9.3-17.3); White Blood Count 11.1 T/CUMM (4-12)
[2022-07-31 06:07] LABS: Calcium 8.5 MG/DL (8.5-10.1); Osmolality,Calculated 285.8 MOS/KG (273-304); Potassium 4.7 MMOL/L (3.5-5.1)
[2022-07-31] MEDS: AZITHROMYCIN INJ 500 MG in SODIUM CHLORIDE 0.9% 250 ML IV SCH (06:20)
[2022-07-31] MEDS: INSULIN LISPRO 100 UNIT/ML SUBCUT SCH ×4 (08:45→21:35)
[2022-07-31] MEDS: CYANOCOBALAMIN 500 MCG TABLET PO SCH (08:46)
[2022-07-31] MEDS: carvediloL 12.5 MG TABLET PO SCH ×2 (08:46→21:21)
[2022-07-31] MEDS: levETIRAcetam 500 MG TABLET PO SCH ×2 (08:46→21:21)
[2022-07-31] MEDS: NYSTATIN 500,000 UNIT/5 ML UDCUP PO SCH ×4 (08:46→21:21)
[2022-07-31] MEDS: CHOLECALCIFEROL 1,000 UNIT TABLET PO SCH (08:46)
[2022-07-31] MEDS: CLOPIDOGREL 75 MG TABLET PO SCH (08:46)
[2022-07-31] MEDS: ATORVASTATIN 80 MG TABLET PO SCH (08:46)
[2022-07-31] MEDS: GABAPENTIN 300 MG CAPSULE PO SCH ×3 (08:46→21:21)
[2022-07-31] MEDS: ISOSORBIDE MONONITRATE 30 MG TABLET PO SCH (08:46)
[2022-07-31] MEDS: PANTOPRAZOLE 40 MG TABLET PO SCH (08:46)
[2022-07-31] MEDS ORDERED: FERRIC GLUCONATE COMPLEX 125 MG in SODIUM CHLORIDE 0.9% 100 ML IV SCH (09:00)
[2022-07-31] MEDS: LACTOBACILLUS ACIDOPHILUS/BULGARICUS 1 PACKET PO SCH ×3 (10:21→21:35)
[2022-07-31] MEDS: PIPERACILLIN/TAZOBACTAM 3,375 MG in SODIUM CHLORIDE 0.9% 100 ML IV SCH (10:22)
[2022-07-31] MEDS ORDERED: FUROSEMIDE 40 MG/4 ML VIAL IV ONE (15:00)
[2022-07-31] MEDS: cefTRIAXone 1,000 MG in SODIUM CHLORIDE 0.9% 100 ML IV SCH (15:49)
[2022-07-31] MEDS: FERRIC GLUCONATE COMPLEX 125 MG in SODIUM CHLORIDE 0.9% 100 ML IV SCH (16:31)
[2022-08-01] MEDS: HYDROmorphone 1 MG/1 ML SYRINGE IV PRN ×7 (00:36→22:43)
[2022-08-01 05:06] LABS: Basophils # 0.1 10*3/uL (0.0-0.2); Basophils % 0.8 % (0.0-0.8); Eosinophils # 0.5 10*3/uL (0.0-0.87); Eosinophils % 5.4 % (0.00-10.9); Hematocrit 29.5 VOL% (42.0-52.0); Immature Granulocytes % 0.7 %; Immature Granulocytes Absolute 0.06 #; Lymphocytes # 1.2 10*3/uL (1.4-4.0); Lymphocytes % 13.5 % (21.2-54.2); Mean Corpuscular HGB Conc 30.5 GM/DL (32-36); Mean Corpuscular Volume 97.4 FL (87-102); Mean Platelet Volume 11.4 FL (9.6-12.0); Monocytes # 0.7 10*3/uL (0.11-0.8); Monocytes % 7.7 % (1.7-12.7); Neutrophils % 71.9 % (38.7-73.9); Platelet Count 240 T/CUMM (130-400); Red Blood Count 3.03 MC/CUMM (3.8-5.5); Red Cell Distribution Width 15.1 % (9.3-17.3); White Blood Count 8.8 T/CUMM (4-12)
[2022-08-01] MEDS: ONDANSETRON 4 MG/2 ML VIAL IV PRN (05:08)
[2022-08-01] MEDS: AZITHROMYCIN INJ 500 MG in SODIUM CHLORIDE 0.9% 250 ML IV SCH (05:08)
[2022-08-01 05:32] LABS: Calcium 8.6 MG/DL (8.5-10.1); Osmolality,Calculated 289.7 MOS/KG (273-304); Potassium 4.5 MMOL/L (3.5-5.1)
[2022-08-01] MEDS: ALBUTEROL/IPRATROPIUM 3 ML NEB RESP TX SCH ×3 (07:33→19:07)
[2022-08-01] MEDS: INSULIN LISPRO 100 UNIT/ML SUBCUT SCH ×4 (08:05→21:10)
[2022-08-01] MEDS: LACTOBACILLUS ACIDOPHILUS/BULGARICUS 1 PACKET PO SCH ×3 (10:04→21:10)
[2022-08-01] MEDS: FERRIC GLUCONATE COMPLEX 125 MG in SODIUM CHLORIDE 0.9% 100 ML IV SCH (10:04)
[2022-08-01] MEDS: NYSTATIN 500,000 UNIT/5 ML UDCUP PO SCH ×4 (10:04→21:09)
[2022-08-01] MEDS: ISOSORBIDE MONONITRATE 30 MG TABLET PO SCH (10:04)
[2022-08-01] MEDS: levETIRAcetam 500 MG TABLET PO SCH ×2 (10:05→21:09)
[2022-08-01] MEDS: PANTOPRAZOLE 40 MG TABLET PO SCH (10:05)
[2022-08-01] MEDS: carvediloL 12.5 MG TABLET PO SCH ×2 (10:05→16:00)
[2022-08-01] MEDS: CLOPIDOGREL 75 MG TABLET PO SCH (10:05)
[2022-08-01] MEDS: CHOLECALCIFEROL 1,000 UNIT TABLET PO SCH (10:05)
[2022-08-01] MEDS: CYANOCOBALAMIN 500 MCG TABLET PO SCH (10:05)
[2022-08-01] MEDS: ATORVASTATIN 80 MG TABLET PO SCH (10:05)
[2022-08-01] MEDS: GABAPENTIN 300 MG CAPSULE PO SCH ×3 (10:06→21:09)
[2022-08-01] MEDS: cefTRIAXone 1,000 MG in SODIUM CHLORIDE 0.9% 100 ML IV SCH (15:50)
[2022-08-02] MEDS: ALBUTEROL/IPRATROPIUM 3 ML NEB RESP TX SCH ×2 (00:41→07:20)
[2022-08-02] MEDS: HYDROmorphone 1 MG/1 ML SYRINGE IV PRN ×4 (01:50→11:31)
[2022-08-02 05:29] LABS: Basophils # 0.1 10*3/uL (0.0-0.2); Basophils % 0.4 % (0.0-0.8); Eosinophils # 0.3 10*3/uL (0.0-0.87); Eosinophils % 2.6 % (0.00-10.9); Hematocrit 28.4 VOL% (42.0-52.0); Hemoglobin 8.5 GM/DL (14.0-18.0); Immature Granulocytes % 0.5 %; Immature Granulocytes Absolute 0.06 #; Lymphocytes % 8.4 % (21.2-54.2); Mean Corpuscular HGB Conc 29.9 GM/DL (32-36); Mean Corpuscular Volume 97.6 FL (87-102); Mean Platelet Volume 11.6 FL (9.6-12.0); Monocytes # 0.9 10*3/uL (0.11-0.8); Monocytes % 7.6 % (1.7-12.7); Neutrophils % 80.5 % (38.7-73.9); Platelet Count 208 T/CUMM (130-400); Red Blood Count 2.91 MC/CUMM (3.8-5.5); White Blood Count 11.9 T/CUMM (4-12)
[2022-08-02 05:49] LABS: Calcium 8.6 MG/DL (8.5-10.1); Osmolality,Calculated 291.7 MOS/KG (273-304); Potassium 4.8 MMOL/L (3.5-5.1)
[2022-08-02] MEDS: AZITHROMYCIN INJ 500 MG in SODIUM CHLORIDE 0.9% 250 ML IV SCH (06:30)
[2022-08-02] MEDS: GABAPENTIN 300 MG CAPSULE PO SCH (08:09)
[2022-08-02] MEDS: ATORVASTATIN 80 MG TABLET PO SCH (08:09)
[2022-08-02] MEDS: levETIRAcetam 500 MG TABLET PO SCH (08:09)
[2022-08-02] MEDS: CLOPIDOGREL 75 MG TABLET PO SCH (08:10)
[2022-08-02] MEDS: PANTOPRAZOLE 40 MG TABLET PO SCH (08:10)
[2022-08-02] MEDS: ISOSORBIDE MONONITRATE 30 MG TABLET PO SCH (08:10)
[2022-08-02] MEDS: CHOLECALCIFEROL 1,000 UNIT TABLET PO SCH (08:10)
[2022-08-02] MEDS: carvediloL 12.5 MG TABLET PO SCH (08:10)
[2022-08-02] MEDS: CYANOCOBALAMIN 500 MCG TABLET PO SCH (08:10)
[2022-08-02] MEDS: NYSTATIN 500,000 UNIT/5 ML UDCUP PO SCH (08:12)
[2022-08-02] MEDS: INSULIN LISPRO 100 UNIT/ML SUBCUT SCH (08:13)
[2022-08-02] MEDS: LACTOBACILLUS ACIDOPHILUS/BULGARICUS 1 PACKET PO SCH (09:30)
[2022-08-02] MEDS ORDERED: TORSEMIDE 20 MG TABLET PO SCH (10:00)
[2022-08-02] MEDS ORDERED: BACILLUS COAGULANS CAPLET PO SCH (10:00)
[2022-08-02] MEDS: FERRIC GLUCONATE COMPLEX 125 MG in SODIUM CHLORIDE 0.9% 100 ML IV SCH (10:03)
[2022-08-02 12:21] LABS: Mycoplasma pneumoniae Ab Inter SEE COMMENTS; Mycoplasma pneumoniae Ab, IgG Positive (Negative); Mycoplasma pneumoniae Ab, IgM Negative (Negative)
[2022-08-02 12:32] VITALS: BP 135/85
== END 2022-08-02 15:00 | disposition home health service (06) | DRG 193 ==
LOC: EDUNIT# → EDBD → N.ED 20:19 → N.3E 21:55
PROVIDERS: ADMIT Internal Medicine; ATTEND Internal Medicine

== ENCOUNTER 2022-08-03 09:51 | Inpatient (IN) ==
[2022-08-03] MEDS ORDERED: ALBUTEROL/IPRATROPIUM 3 ML NEB RESP TX STA (10:26)
[2022-08-03] MEDS ORDERED: ASPIRIN 325 MG TABLET PO STA (10:26)
[2022-08-03] MEDS ORDERED: FUROSEMIDE 40 MG/4 ML VIAL IV STA (10:27)
[2022-08-03] MEDS ORDERED: NITROGLYCERIN SL 0.4 MG TABLET SL STA (10:27)
[2022-08-03 10:44] LABS: Basophils # 0.1 10*3/uL (0.0-0.2); Eosinophils # 0.2 10*3/uL (0.0-0.87); Eosinophils % 1.4 % (0.00-10.9); Hematocrit 32.3 VOL% (42.0-52.0); Hemoglobin 9.8 GM/DL (14.0-18.0); Immature Granulocytes % 0.7 %; Immature Granulocytes Absolute 0.08 #; Lymphocytes % 8.1 % (21.2-54.2); Mean Corpuscular HGB Conc 30.3 GM/DL (32-36); Mean Corpuscular Volume 96.1 FL (87-102); Mean Platelet Volume 11.6 FL (9.6-12.0); Monocytes # 0.5 10*3/uL (0.11-0.8); Monocytes % 4.5 % (1.7-12.7); Neutrophils % 84.3 % (38.7-73.9); Platelet Count 247 T/CUMM (130-400); Red Blood Count 3.36 MC/CUMM (3.8-5.5); Red Cell Distribution Width 14.9 % (9.3-17.3)
[2022-08-03 10:53] LABS: INR 1.1; PT Patient Result 12.5 SECS (10.1-12.1)
[2022-08-03 11:05] LABS: Alanine Aminotransferase 17 U/L (16-61); Albumin 2.1 G/DL (3.4-5.0); Alkaline Phosphatase 90 U/L (45-117); Aspartate Amino Transferase 15 U/L (0-37); Bilirubin,Total < 0.39 MG/DL (0.20-1.00); Blood Urea Nitrogen 28 MG/DL (7-18); Calcium 9.1 MG/DL (8.5-10.1); Carbon Dioxide 23 MMOL/L (21-32); Chloride 111 MMOL/L (98-107); Glucose 221 MG/DL (74-106); Osmolality,Calculated 291.4 MOS/KG (273-304); Potassium 5.5 MMOL/L (3.5-5.1); Sodium 140 MMOL/L (136-145); Total Protein 6.3 G/DL (6.4-8.2)
[2022-08-03] MEDS ORDERED: hydrALAZINE 20 MG/1 ML VIAL IV PRN (12:38)
[2022-08-03] MEDS ORDERED: ONDANSETRON 4 MG/2 ML VIAL IV PRN (12:38)
[2022-08-03] MEDS ORDERED: ACETAMINOPHEN 325 MG TABLET PO PRN (12:41)
[2022-08-03] MEDS: ALBUTEROL 2.5 MG/3 ML NEB RESP TX SCH ×2 (13:00→19:00)
[2022-08-03] MEDS ORDERED: GLUCAGON 1 MG VIAL IM PRN (15:14)
[2022-08-03] MEDS ORDERED: DEXTROSE 10% 250 ML BAG IV PRN (15:14)
[2022-08-03] MEDS: GABAPENTIN 300 MG CAPSULE PO SCH ×2 (15:25→22:02)
[2022-08-03] MEDS: HYDROmorphone 1 MG/1 ML SYRINGE IV PRN ×2 (15:46→23:52)
[2022-08-03] MEDS ORDERED: FUROSEMIDE 40 MG/4 ML VIAL IV SCH (16:00)
[2022-08-03] MEDS: INSULIN LISPRO 100 UNIT/ML SUBCUT SCH (18:25)
[2022-08-03] MEDS: methylPREDNISolone SOD SUC 40 MG/1 ML VIAL IV SCH (18:26)
[2022-08-03] MEDS: NYSTATIN 500,000 UNIT/5 ML UDCUP PO SCH ×2 (18:26→22:03)
[2022-08-03] MEDS ORDERED: CLORAZEPATE 3.75 MG TABLET PO PRN (18:42)
[2022-08-03] MEDS: DAPAGLIFLOZIN 10 MG TABLET PO SCH (22:01)
[2022-08-03] MEDS: levETIRAcetam 500 MG TABLET PO SCH (22:01)
[2022-08-03] MEDS: SODIUM BICARBONATE 650 MG TABLET PO SCH (22:01)
[2022-08-03] MEDS: CEFUROXIME 500 MG TABLET PO SCH (22:01)
[2022-08-03] MEDS: carvediloL 12.5 MG TABLET PO SCH (22:02)
[2022-08-03] MEDS: BACILLUS COAGULANS CAPLET PO SCH (22:02)
[2022-08-03] MEDS: INSULIN GLARGINE 100 UNIT/ML SUBCUT SCH (22:04)
[2022-08-04] MEDS: ALBUTEROL 2.5 MG/3 ML NEB RESP TX SCH ×4 (00:10→19:05)
[2022-08-04 05:07] LABS: Basophils % 0.2 % (0.0-0.8); Hematocrit 31.3 VOL% (42.0-52.0); Hemoglobin 9.6 GM/DL (14.0-18.0); Immature Granulocytes % 0.5 %; Immature Granulocytes Absolute 0.04 #; Lymphocytes # 0.5 10*3/uL (1.4-4.0); Lymphocytes % 5.9 % (21.2-54.2); Mean Corpuscular HGB Conc 30.7 GM/DL (32-36); Mean Corpuscular Volume 95.1 FL (87-102); Mean Platelet Volume 11.4 FL (9.6-12.0); Monocytes # 0.1 10*3/uL (0.11-0.8); Neutrophils % 92.4 % (38.7-73.9); Platelet Count 242 T/CUMM (130-400); Red Blood Count 3.29 MC/CUMM (3.8-5.5); Red Cell Distribution Width 14.6 % (9.3-17.3); White Blood Count 8.7 T/CUMM (4-12)
[2022-08-04] MEDS: methylPREDNISolone SOD SUC 40 MG/1 ML VIAL IV SCH ×2 (05:27→22:16)
[2022-08-04 05:29] LABS: Alanine Aminotransferase 14 U/L (16-61); Albumin 1.9 G/DL (3.4-5.0); Alkaline Phosphatase 77 U/L (45-117); Aspartate Amino Transferase 12 U/L (0-37); Bilirubin,Total < 0.39 MG/DL (0.20-1.00); Blood Urea Nitrogen 31 MG/DL (7-18); Calcium 9.1 MG/DL (8.5-10.1); Carbon Dioxide 23 MMOL/L (21-32); Chloride 108 MMOL/L (98-107); Glucose 296 MG/DL (74-106); Osmolality,Calculated 290.8 MOS/KG (273-304); Sodium 137 MMOL/L (136-145); Thyroid Stimulating Hormone 0.187 uIU/ml (0.358-3.74); Total Protein 6.5 G/DL (6.4-8.2)
[2022-08-04 05:39] LABS: Lymphocytes 3 % (20-55); Microcytosis Slight; Total Cells Counted 100
[2022-08-04 05:40] LABS: Ovalocytes Slight; Polychromasia Slight
[2022-08-04] MEDS ORDERED: ISOSORBIDE MONONITRATE 30 MG TABLET PO SCH (09:00)
[2022-08-04] MEDS: SODIUM BICARBONATE 650 MG TABLET PO SCH ×2 (09:36→22:12)
[2022-08-04] MEDS: BACILLUS COAGULANS CAPLET PO SCH ×2 (09:36→22:12)
[2022-08-04] MEDS: GABAPENTIN 300 MG CAPSULE PO SCH ×3 (09:36→22:13)
[2022-08-04] MEDS: ATORVASTATIN 80 MG TABLET PO SCH (09:37)
[2022-08-04] MEDS: CLOPIDOGREL 75 MG TABLET PO SCH (09:37)
[2022-08-04] MEDS: CYANOCOBALAMIN 500 MCG TABLET PO SCH (09:37)
[2022-08-04] MEDS: ISOSORBIDE MONONITRATE 60 MG TABLET PO SCH (09:37)
[2022-08-04] MEDS: CEFUROXIME 500 MG TABLET PO SCH ×2 (09:37→22:12)
[2022-08-04] MEDS: metOLazone 5 MG TABLET PO SCH (09:37)
[2022-08-04] MEDS: CHOLECALCIFEROL 1,000 UNIT TABLET PO SCH (09:38)
[2022-08-04] MEDS: INSULIN LISPRO 100 UNIT/ML SUBCUT SCH ×4 (09:38→22:09)
[2022-08-04] MEDS: FERROUS SULFATE 325 MG TABLET PO SCH (09:38)
[2022-08-04] MEDS: carvediloL 12.5 MG TABLET PO SCH ×2 (09:38→22:28)
[2022-08-04] MEDS: NYSTATIN 500,000 UNIT/5 ML UDCUP PO SCH ×4 (09:38→22:13)
[2022-08-04] MEDS: levETIRAcetam 500 MG TABLET PO SCH ×2 (09:38→22:12)
[2022-08-04] MEDS: HYDROmorphone 1 MG/1 ML SYRINGE IV PRN ×3 (11:11→22:31)
[2022-08-04] MEDS: FUROSEMIDE 40 MG/4 ML VIAL IV SCH ×2 (11:14→17:14)
[2022-08-04] MEDS: INSULIN GLARGINE 100 UNIT/ML SUBCUT SCH (22:11)
[2022-08-04] MEDS: DAPAGLIFLOZIN 10 MG TABLET PO SCH (22:12)
[2022-08-05] MEDS: ALBUTEROL 2.5 MG/3 ML NEB RESP TX SCH ×4 (00:30→18:55)
[2022-08-05 05:00] LABS: Basophils % 0.1 % (0.0-0.8); Hematocrit 30.6 VOL% (42.0-52.0); Hemoglobin 9.2 GM/DL (14.0-18.0); Immature Granulocytes % 0.8 %; Immature Granulocytes Absolute 0.11 #; Lymphocytes # 0.5 10*3/uL (1.4-4.0); Lymphocytes % 3.7 % (21.2-54.2); Mean Corpuscular HGB Conc 30.1 GM/DL (32-36); Mean Corpuscular Volume 94.7 FL (87-102); Mean Platelet Volume 11.9 FL (9.6-12.0); Monocytes # 0.2 10*3/uL (0.11-0.8); Monocytes % 1.5 % (1.7-12.7); Neutrophils % 93.9 % (38.7-73.9); Platelet Count 276 T/CUMM (130-400); Red Blood Count 3.23 MC/CUMM (3.8-5.5); Red Cell Distribution Width 14.6 % (9.3-17.3); White Blood Count 13.6 T/CUMM (4-12)
[2022-08-05] MEDS: HYDROmorphone 1 MG/1 ML SYRINGE IV PRN ×4 (05:06→23:53)
[2022-08-05 05:27] LABS: Calcium 8.9 MG/DL (8.5-10.1); Osmolality,Calculated 293.2 MOS/KG (273-304); Potassium 4.7 MMOL/L (3.5-5.1)
[2022-08-05 05:31] LABS: Lymphocytes 3 % (20-55); Total Cells Counted 100
[2022-08-05 05:32] LABS: Hypochromia 1+; Platelet Estimate Normal
[2022-08-05] MEDS: metOLazone 5 MG TABLET PO SCH (07:15)
[2022-08-05] MEDS: INSULIN LISPRO 100 UNIT/ML SUBCUT SCH ×7 (07:16→21:50)
[2022-08-05] MEDS: BACILLUS COAGULANS CAPLET PO SCH ×2 (09:36→21:45)
[2022-08-05] MEDS: ATORVASTATIN 80 MG TABLET PO SCH (09:36)
[2022-08-05] MEDS: ISOSORBIDE MONONITRATE 60 MG TABLET PO SCH (09:36)
[2022-08-05] MEDS: NYSTATIN 500,000 UNIT/5 ML UDCUP PO SCH ×4 (09:36→21:46)
[2022-08-05] MEDS: levETIRAcetam 500 MG TABLET PO SCH ×2 (09:36→21:45)
[2022-08-05] MEDS: FERROUS SULFATE 325 MG TABLET PO SCH (09:36)
[2022-08-05] MEDS: CEFUROXIME 500 MG TABLET PO SCH ×2 (09:36→21:45)
[2022-08-05] MEDS: carvediloL 12.5 MG TABLET PO SCH ×2 (09:37→21:44)
[2022-08-05] MEDS: SODIUM BICARBONATE 650 MG TABLET PO SCH ×2 (09:37→21:44)
[2022-08-05] MEDS: CLOPIDOGREL 75 MG TABLET PO SCH (09:37)
[2022-08-05] MEDS: GABAPENTIN 300 MG CAPSULE PO SCH ×3 (09:37→21:48)
[2022-08-05] MEDS: CYANOCOBALAMIN 500 MCG TABLET PO SCH (09:37)
[2022-08-05] MEDS: CHOLECALCIFEROL 1,000 UNIT TABLET PO SCH (09:37)
[2022-08-05] MEDS: methylPREDNISolone SOD SUC 40 MG/1 ML VIAL IV SCH (09:41)
[2022-08-05] MEDS: FUROSEMIDE 40 MG/4 ML VIAL IV SCH ×2 (09:45→17:48)
[2022-08-05] MEDS ORDERED: MAGNESIUM SULF RIDER 2 GM/50 ML PREMIX IV ONE (13:15)
[2022-08-05] MEDS: DAPAGLIFLOZIN 10 MG TABLET PO SCH (21:44)
[2022-08-05] MEDS: INSULIN GLARGINE 100 UNIT/ML SUBCUT SCH (21:51)
[2022-08-06] MEDS: ALBUTEROL 2.5 MG/3 ML NEB RESP TX SCH ×4 (00:01→19:05)
[2022-08-06] MEDS: HYDROmorphone 1 MG/1 ML SYRINGE IV PRN ×3 (05:57→19:24)
[2022-08-06 06:13] LABS: Basophils % 0.1 % (0.0-0.8); Hemoglobin 10.3 GM/DL (14.0-18.0); Immature Granulocytes Absolute 0.16 #; Lymphocytes # 1.3 10*3/uL (1.4-4.0); Lymphocytes % 8.3 % (21.2-54.2); Mean Corpuscular HGB Conc 32.2 GM/DL (32-36); Mean Corpuscular Volume 93.6 FL (87-102); Mean Platelet Volume 11.8 FL (9.6-12.0); Monocytes # 0.8 10*3/uL (0.11-0.8); Monocytes % 4.9 % (1.7-12.7); Neutrophils % 85.7 % (38.7-73.9); Platelet Count 310 T/CUMM (130-400); Red Blood Count 3.42 MC/CUMM (3.8-5.5); Red Cell Distribution Width 14.6 % (9.3-17.3); White Blood Count 15.4 T/CUMM (4-12)
[2022-08-06 06:51] LABS: Calcium 8.8 MG/DL (8.5-10.1); Osmolality,Calculated 288.4 MOS/KG (273-304)
[2022-08-06] MEDS: metOLazone 5 MG TABLET PO SCH (08:54)
[2022-08-06] MEDS: INSULIN LISPRO 100 UNIT/ML SUBCUT SCH ×7 (08:55→21:01)
[2022-08-06] MEDS: ISOSORBIDE MONONITRATE 60 MG TABLET PO SCH (10:34)
[2022-08-06] MEDS: CYANOCOBALAMIN 500 MCG TABLET PO SCH (10:34)
[2022-08-06] MEDS: NYSTATIN 500,000 UNIT/5 ML UDCUP PO SCH ×4 (10:34→20:59)
[2022-08-06] MEDS: CHOLECALCIFEROL 1,000 UNIT TABLET PO SCH (10:34)
[2022-08-06] MEDS: predniSONE 20 MG TABLET PO SCH (10:35)
[2022-08-06] MEDS: levETIRAcetam 500 MG TABLET PO SCH ×2 (10:35→20:59)
[2022-08-06] MEDS: FERROUS SULFATE 325 MG TABLET PO SCH (10:35)
[2022-08-06] MEDS: CLOPIDOGREL 75 MG TABLET PO SCH (10:36)
[2022-08-06] MEDS: SODIUM BICARBONATE 650 MG TABLET PO SCH ×2 (10:36→21:00)
[2022-08-06] MEDS: ATORVASTATIN 80 MG TABLET PO SCH (10:36)
[2022-08-06] MEDS: carvediloL 12.5 MG TABLET PO SCH ×2 (10:36→21:00)
[2022-08-06] MEDS: GABAPENTIN 300 MG CAPSULE PO SCH ×3 (10:36→20:59)
[2022-08-06] MEDS: CEFUROXIME 500 MG TABLET PO SCH ×2 (10:36→20:59)
[2022-08-06] MEDS: BACILLUS COAGULANS CAPLET PO SCH ×2 (10:36→20:59)
[2022-08-06] MEDS: FUROSEMIDE 40 MG/4 ML VIAL IV SCH ×2 (10:42→17:20)
[2022-08-06] MEDS ORDERED: LOPERAMIDE 2 MG CAPSULE PO PRN (18:15)
[2022-08-06] MEDS: DAPAGLIFLOZIN 10 MG TABLET PO SCH (20:59)
[2022-08-06] MEDS: INSULIN GLARGINE 100 UNIT/ML SUBCUT SCH (21:01)
[2022-08-07] MEDS: ALBUTEROL 2.5 MG/3 ML NEB RESP TX SCH ×3 (00:10→14:40)
[2022-08-07] MEDS: HYDROmorphone 1 MG/1 ML SYRINGE IV PRN ×2 (01:50→08:34)
[2022-08-07 05:59] LABS: Basophils % 0.1 % (0.0-0.8); Hematocrit 32.8 VOL% (42.0-52.0); Hemoglobin 10.5 GM/DL (14.0-18.0); Immature Granulocytes % 1.7 %; Immature Granulocytes Absolute 0.24 #; Lymphocytes # 1.1 10*3/uL (1.4-4.0); Lymphocytes % 7.6 % (21.2-54.2); Mean Corpuscular Volume 91.9 FL (87-102); Mean Platelet Volume 11.9 FL (9.6-12.0); Monocytes # 0.6 10*3/uL (0.11-0.8); Monocytes % 4.5 % (1.7-12.7); Neutrophils % 86.1 % (38.7-73.9); Platelet Count 310 T/CUMM (130-400); Red Blood Count 3.57 MC/CUMM (3.8-5.5); Red Cell Distribution Width 14.6 % (9.3-17.3); White Blood Count 14.1 T/CUMM (4-12)
[2022-08-07 06:11] LABS: Calcium 8.6 MG/DL (8.5-10.1); Osmolality,Calculated 293.5 MOS/KG (273-304); Potassium 3.6 MMOL/L (3.5-5.1)
[2022-08-07] MEDS: SODIUM BICARBONATE 650 MG TABLET PO SCH (08:25)
[2022-08-07] MEDS: GABAPENTIN 300 MG CAPSULE PO SCH (08:25)
[2022-08-07] MEDS: carvediloL 12.5 MG TABLET PO SCH (08:26)
[2022-08-07] MEDS: CYANOCOBALAMIN 500 MCG TABLET PO SCH (08:26)
[2022-08-07] MEDS: CHOLECALCIFEROL 1,000 UNIT TABLET PO SCH (08:26)
[2022-08-07] MEDS: ISOSORBIDE MONONITRATE 60 MG TABLET PO SCH (08:26)
[2022-08-07] MEDS: CLOPIDOGREL 75 MG TABLET PO SCH (08:27)
[2022-08-07] MEDS: ATORVASTATIN 80 MG TABLET PO SCH (08:27)
[2022-08-07] MEDS: predniSONE 20 MG TABLET PO SCH (08:27)
[2022-08-07] MEDS: metOLazone 5 MG TABLET PO SCH (08:27)
[2022-08-07] MEDS: FERROUS SULFATE 325 MG TABLET PO SCH (08:27)
[2022-08-07] MEDS: levETIRAcetam 500 MG TABLET PO SCH (08:27)
[2022-08-07] MEDS: FUROSEMIDE 40 MG/4 ML VIAL IV SCH (08:28)
[2022-08-07] MEDS: BACILLUS COAGULANS CAPLET PO SCH (08:28)
[2022-08-07] MEDS: INSULIN LISPRO 100 UNIT/ML SUBCUT SCH ×4 (08:30→13:26)
[2022-08-07] MEDS ORDERED: PANTOPRAZOLE 40 MG TABLET PO SCH (09:00)
[2022-08-07 12:10] VITALS: BP 130/66
== END 2022-08-07 13:50 | disposition home health service (06) | DRG 291 ==
LOC: EDBD → EDUNIT# → N.ED 09:51 → SUATTDRO 12:36 → N.EDINP 12:36 → N.5E 15:01
PROVIDERS: ADMIT Internal Medicine; ATTEND Internal Medicine

== ENCOUNTER 2022-09-11 17:50 | Inpatient (IN) ==
[2022-09-11] MEDS ORDERED: ACETAMINOPHEN 500 MG TABLET PO STA (18:35)
[2022-09-11 18:36] LABS: Basophils # 0.1 10*3/uL (0.0-0.2); Basophils % 0.7 % (0.0-0.8); Eosinophils # 0.1 10*3/uL (0.0-0.87); Eosinophils % 0.5 % (0.00-10.9); Hematocrit 28.1 VOL% (42.0-52.0); Hemoglobin 8.7 GM/DL (14.0-18.0); Immature Granulocytes Absolute 0.11 #; Lymphocytes # 0.6 10*3/uL (1.4-4.0); Lymphocytes % 6.1 % (21.2-54.2); Mean Corpuscular Volume 97.9 FL (87-102); Mean Platelet Volume 11.2 FL (9.6-12.0); Monocytes # 0.8 10*3/uL (0.11-0.8); Monocytes % 7.2 % (1.7-12.7); NRBC # 0.02 10*3/uL; Neutrophils % 84.5 % (38.7-73.9); Platelet Count 227 T/CUMM (130-400); Red Blood Count 2.87 MC/CUMM (3.8-5.5); Red Cell Distribution Width 18.3 % (9.3-17.3); White Blood Count 10.5 T/CUMM (4-12)
[2022-09-11 18:55] LABS: Alanine Aminotransferase 20 U/L (16-61); Albumin 2.4 G/DL (3.4-5.0); Alkaline Phosphatase 88 U/L (45-117); Aspartate Amino Transferase 18 U/L (0-37); Bilirubin,Total < 0.39 MG/DL (0.20-1.00); Blood Urea Nitrogen 38 MG/DL (7-18); Calcium 9.2 MG/DL (8.5-10.1); Carbon Dioxide 27 MMOL/L (21-32); Chloride 102 MMOL/L (98-107); Glucose 207 MG/DL (74-106); Potassium 4.9 MMOL/L (3.5-5.1); Sodium 136 MMOL/L (136-145); Total Protein 6.7 G/DL (6.4-8.2)
[2022-09-11] MEDS ORDERED: CLINDAMYCIN INJ 900 MG/50 ML PREMIX IV STA (20:32)
[2022-09-11] MEDS ORDERED: OSELTAMIVIR 30 MG CAPSULE PO ONE (21:22)
[2022-09-11] MEDS ORDERED: ONDANSETRON 4 MG/2 ML VIAL IV PRN (22:03)
[2022-09-11] MEDS ORDERED: GLUCAGON 1 MG VIAL IM PRN (22:03)
[2022-09-11] MEDS ORDERED: ACETAMINOPHEN 325 MG TABLET PO PRN (22:07)
[2022-09-11] MEDS ORDERED: DEXTROSE 10% 250 ML BAG IV PRN (22:21)
[2022-09-11] MEDS ORDERED: FUROSEMIDE 40 MG/4 ML VIAL IV ONE (22:58)
[2022-09-12] MEDS: PIPERACILLIN/TAZOBACTAM 3,375 MG in SODIUM CHLORIDE 0.9% 100 ML IV SCH ×3 (00:46→22:52)
[2022-09-12] MEDS: AMIODARONE 200 MG TABLET PO SCH ×3 (00:46→20:56)
[2022-09-12 01:48] LABS: Bilirubin,Urine Negative (Negative); Blood, Urine Negative (Negative); Glucose,Urine (UA) >=1000 mg/dL (Negative); Ketones,Urine Negative (Negative); Nitrite,Urine Negative (Negative); Protein,Urine >=300 mg/dL (Negative); Urine Appearance Clear (Clear); Urine Color Yellow (Yellow); Urine Urobilinogen 0.2 eU/dL (<2.0)
[2022-09-12 01:53] LABS: RBC,Urine 0-3 /HPF (0-4); Squamous Epithelial Cell,Urine 0 /HPF (0-10)
[2022-09-12] MEDS ORDERED: CLINDAMYCIN INJ 900 MG/50 ML PREMIX IV SCH (06:00)
[2022-09-12 06:56] LABS: Basophils # 0.1 10*3/uL (0.0-0.2); Basophils % 0.7 % (0.0-0.8); Eosinophils % 0.4 % (0.00-10.9); Hematocrit 27.8 VOL% (42.0-52.0); Hemoglobin 8.6 GM/DL (14.0-18.0); Immature Granulocytes % 1.1 %; Immature Granulocytes Absolute 0.09 #; Lymphocytes # 0.8 10*3/uL (1.4-4.0); Lymphocytes % 9.7 % (21.2-54.2); Mean Corpuscular HGB Conc 30.9 GM/DL (32-36); Mean Corpuscular Volume 98.2 FL (87-102); Mean Platelet Volume 11.4 FL (9.6-12.0); Monocytes # 0.9 10*3/uL (0.11-0.8); Monocytes % 10.6 % (1.7-12.7); Neutrophils % 77.5 % (38.7-73.9); Platelet Count 196 T/CUMM (130-400); Red Blood Count 2.83 MC/CUMM (3.8-5.5); Red Cell Distribution Width 18.3 % (9.3-17.3); White Blood Count 8.2 T/CUMM (4-12)
[2022-09-12 07:39] LABS: Alanine Aminotransferase 17 U/L (16-61); Albumin 2.1 G/DL (3.4-5.0); Alkaline Phosphatase 80 U/L (45-117); Aspartate Amino Transferase 18 U/L (0-37); Bilirubin,Total < 0.39 MG/DL (0.20-1.00); Blood Urea Nitrogen 37 MG/DL (7-18); Calcium 8.6 MG/DL (8.5-10.1); Carbon Dioxide 24 MMOL/L (21-32); Chloride 100 MMOL/L (98-107); Glucose 224 MG/DL (74-106); Osmolality,Calculated 288.8 MOS/KG (273-304); Potassium 4.6 MMOL/L (3.5-5.1); Sodium 137 MMOL/L (136-145)
[2022-09-12] MEDS: INSULIN REGULAR 100 UNIT/ML SUBCUT SCH ×4 (09:05→20:55)
[2022-09-12] MEDS: ATORVASTATIN 80 MG TABLET PO SCH (09:06)
[2022-09-12] MEDS: OSELTAMIVIR 30 MG CAPSULE PO SCH ×2 (09:06→20:55)
[2022-09-12] MEDS: CYANOCOBALAMIN 500 MCG TABLET PO SCH (09:06)
[2022-09-12] MEDS: carvediloL 12.5 MG TABLET PO SCH ×2 (09:07→20:56)
[2022-09-12] MEDS: SODIUM BICARBONATE 650 MG TABLET PO SCH ×2 (09:07→20:56)
[2022-09-12] MEDS: CHOLECALCIFEROL 1,000 UNIT TABLET PO SCH (09:07)
[2022-09-12] MEDS: FUROSEMIDE 80 MG TABLET PO SCH ×2 (09:07→16:37)
[2022-09-12] MEDS: PANTOPRAZOLE 40 MG TABLET PO SCH (09:07)
[2022-09-12] MEDS: BACILLUS COAGULANS CAPLET PO SCH ×2 (09:07→20:55)
[2022-09-12] MEDS: ISOSORBIDE MONONITRATE 30 MG TABLET PO SCH (09:08)
[2022-09-12] MEDS: metOLazone 5 MG TABLET PO SCH (09:08)
[2022-09-12] MEDS: FERROUS SULFATE 325 MG TABLET PO SCH (09:08)
[2022-09-12] MEDS: GABAPENTIN 300 MG CAPSULE PO SCH ×3 (09:08→20:56)
[2022-09-12] MEDS: levETIRAcetam 500 MG TABLET PO SCH ×2 (09:09→20:55)
[2022-09-12] MEDS: CLOPIDOGREL 75 MG TABLET PO SCH (09:49)
[2022-09-12] MEDS: INSULIN GLARGINE 100 UNIT/ML SUBCUT SCH (20:54)
[2022-09-12] MEDS: HEPARIN 5,000 UNIT/1 ML VIAL SUBCUT SCH (20:56)
[2022-09-12] MEDS ORDERED: ALBUTEROL 1.25 MG/3 ML NEB RESP TX PRN (22:02)
[2022-09-13 03:38] LABS: Protein/Creatinine Ratio,Urine 8.3 RATIO
[2022-09-13 05:23] LABS: Basophils # 0.1 10*3/uL (0.0-0.2); Basophils % 1.1 % (0.0-0.8); Eosinophils # 0.1 10*3/uL (0.0-0.87); Eosinophils % 0.8 % (0.00-10.9); Hematocrit 27.4 VOL% (42.0-52.0); Hemoglobin 8.6 GM/DL (14.0-18.0); Immature Granulocytes % 1.1 %; Immature Granulocytes Absolute 0.07 #; Lymphocytes % 15.9 % (21.2-54.2); Mean Corpuscular HGB Conc 31.4 GM/DL (32-36); Mean Corpuscular Volume 97.2 FL (87-102); Mean Platelet Volume 11.1 FL (9.6-12.0); Monocytes % 16.1 % (1.7-12.7); Platelet Count 200 T/CUMM (130-400); Red Blood Count 2.82 MC/CUMM (3.8-5.5); Red Cell Distribution Width 18.4 % (9.3-17.3); White Blood Count 6.5 T/CUMM (4-12)
[2022-09-13 05:44] LABS: Anisocytosis 1+; Band Neutrophils 1 % (0-10); Lymphocytes 17 % (20-55); Platelet Estimate Normal; Total Cells Counted 100
[2022-09-13 05:45] LABS: Calcium 8.2 MG/DL (8.5-10.1); Macrocytosis Slight; Osmolality,Calculated 285.8 MOS/KG (273-304); Potassium 3.5 MMOL/L (3.5-5.1)
[2022-09-13 06:09] LABS: Phosphorous 6.1 MG/DL (2.5-4.9); Uric Acid 11.5 MG/DL (3.5-7.2)
[2022-09-13] MEDS: INSULIN REGULAR 100 UNIT/ML SUBCUT SCH ×4 (08:45→21:01)
[2022-09-13] MEDS: CYANOCOBALAMIN 500 MCG TABLET PO SCH (08:46)
[2022-09-13] MEDS: CHOLECALCIFEROL 1,000 UNIT TABLET PO SCH (08:46)
[2022-09-13] MEDS: BACILLUS COAGULANS CAPLET PO SCH ×2 (08:46→21:02)
[2022-09-13] MEDS: ATORVASTATIN 80 MG TABLET PO SCH (08:46)
[2022-09-13] MEDS: OSELTAMIVIR 30 MG CAPSULE PO SCH ×2 (08:46→21:02)
[2022-09-13] MEDS: PANTOPRAZOLE 40 MG TABLET PO SCH (08:46)
[2022-09-13] MEDS: CLOPIDOGREL 75 MG TABLET PO SCH (08:46)
[2022-09-13] MEDS: metOLazone 5 MG TABLET PO SCH (08:47)
[2022-09-13] MEDS: FERROUS SULFATE 325 MG TABLET PO SCH (08:47)
[2022-09-13] MEDS: ISOSORBIDE MONONITRATE 30 MG TABLET PO SCH (08:47)
[2022-09-13] MEDS: SODIUM BICARBONATE 650 MG TABLET PO SCH ×2 (08:47→21:01)
[2022-09-13] MEDS: GABAPENTIN 300 MG CAPSULE PO SCH ×3 (08:47→21:02)
[2022-09-13] MEDS: levETIRAcetam 500 MG TABLET PO SCH ×2 (08:48→21:02)
[2022-09-13] MEDS: AMIODARONE 200 MG TABLET PO SCH ×2 (08:48→21:02)
[2022-09-13] MEDS: FUROSEMIDE 80 MG TABLET PO SCH ×2 (08:48→16:06)
[2022-09-13] MEDS: carvediloL 12.5 MG TABLET PO SCH ×2 (08:48→21:02)
[2022-09-13] MEDS: HEPARIN 5,000 UNIT/1 ML VIAL SUBCUT SCH ×2 (08:48→21:01)
[2022-09-13] MEDS: PIPERACILLIN/TAZOBACTAM 3,375 MG in SODIUM CHLORIDE 0.9% 100 ML IV SCH (12:17)
[2022-09-13] MEDS: INSULIN GLARGINE 100 UNIT/ML SUBCUT SCH (21:01)
[2022-09-14] MEDS: PIPERACILLIN/TAZOBACTAM 3,375 MG in SODIUM CHLORIDE 0.9% 100 ML IV SCH ×3 (01:30→23:10)
[2022-09-14 03:53] LABS: Basophils # 0.1 10*3/uL (0.0-0.2); Eosinophils # 0.1 10*3/uL (0.0-0.87); Eosinophils % 1.4 % (0.00-10.9); Hematocrit 28.7 VOL% (42.0-52.0); Immature Granulocytes % 0.7 %; Immature Granulocytes Absolute 0.05 #; Lymphocytes # 1.3 10*3/uL (1.4-4.0); Lymphocytes % 18.2 % (21.2-54.2); Mean Corpuscular HGB Conc 31.4 GM/DL (32-36); Mean Corpuscular Volume 96.3 FL (87-102); Mean Platelet Volume 11.4 FL (9.6-12.0); Monocytes % 13.3 % (1.7-12.7); Neutrophils % 65.4 % (38.7-73.9); Platelet Count 220 T/CUMM (130-400); Red Blood Count 2.98 MC/CUMM (3.8-5.5); Red Cell Distribution Width 18.2 % (9.3-17.3); White Blood Count 7.1 T/CUMM (4-12)
[2022-09-14 04:24] LABS: Potassium 3.3 MMOL/L (3.5-5.1)
[2022-09-14] MEDS: CLOPIDOGREL 75 MG TABLET PO SCH (09:22)
[2022-09-14] MEDS: INSULIN REGULAR 100 UNIT/ML SUBCUT SCH ×5 (09:22→21:22)
[2022-09-14] MEDS: BACILLUS COAGULANS CAPLET PO SCH ×2 (09:22→21:24)
[2022-09-14] MEDS: SODIUM BICARBONATE 650 MG TABLET PO SCH ×2 (09:22→21:22)
[2022-09-14] MEDS: levETIRAcetam 500 MG TABLET PO SCH ×2 (09:22→21:24)
[2022-09-14] MEDS: OSELTAMIVIR 30 MG CAPSULE PO SCH ×2 (09:23→21:24)
[2022-09-14] MEDS: metOLazone 5 MG TABLET PO SCH (09:23)
[2022-09-14] MEDS: SEVELAMER CARBONATE 800 MG TABLET PO SCH ×3 (09:23→16:28)
[2022-09-14] MEDS: FERROUS SULFATE 325 MG TABLET PO SCH (09:23)
[2022-09-14] MEDS: GABAPENTIN 300 MG CAPSULE PO SCH ×3 (09:23→21:23)
[2022-09-14] MEDS: ISOSORBIDE MONONITRATE 30 MG TABLET PO SCH (09:23)
[2022-09-14] MEDS: carvediloL 12.5 MG TABLET PO SCH ×2 (09:24→21:23)
[2022-09-14] MEDS: ATORVASTATIN 80 MG TABLET PO SCH (09:24)
[2022-09-14] MEDS: CYANOCOBALAMIN 500 MCG TABLET PO SCH (09:24)
[2022-09-14] MEDS: PANTOPRAZOLE 40 MG TABLET PO SCH (09:24)
[2022-09-14] MEDS: AMIODARONE 200 MG TABLET PO SCH ×2 (09:24→21:23)
[2022-09-14] MEDS: HEPARIN 5,000 UNIT/1 ML VIAL SUBCUT SCH ×2 (09:25→21:23)
[2022-09-14] MEDS: INSULIN GLARGINE 100 UNIT/ML SUBCUT SCH (21:23)
[2022-09-15 03:59] LABS: Basophils # 0.1 10*3/uL (0.0-0.2); Basophils % 0.8 % (0.0-0.8); Eosinophils # 0.2 10*3/uL (0.0-0.87); Eosinophils % 2.2 % (0.00-10.9); Hematocrit 30.4 VOL% (42.0-52.0); Hemoglobin 9.8 GM/DL (14.0-18.0); Immature Granulocytes % 0.6 %; Immature Granulocytes Absolute 0.06 #; Lymphocytes # 1.5 10*3/uL (1.4-4.0); Lymphocytes % 15.6 % (21.2-54.2); Mean Corpuscular HGB Conc 32.2 GM/DL (32-36); Mean Corpuscular Volume 94.7 FL (87-102); Mean Platelet Volume 10.9 FL (9.6-12.0); Monocytes # 0.9 10*3/uL (0.11-0.8); Monocytes % 9.6 % (1.7-12.7); Neutrophils % 71.2 % (38.7-73.9); Platelet Count 220 T/CUMM (130-400); Red Blood Count 3.21 MC/CUMM (3.8-5.5); Red Cell Distribution Width 18.1 % (9.3-17.3); White Blood Count 9.3 T/CUMM (4-12)
[2022-09-15 04:26] LABS: Calcium 8.1 MG/DL (8.5-10.1); Osmolality,Calculated 284.1 MOS/KG (273-304); Potassium 3.5 MMOL/L (3.5-5.1)
[2022-09-15] MEDS: INSULIN REGULAR 100 UNIT/ML SUBCUT SCH ×4 (08:20→21:00)
[2022-09-15] MEDS: SEVELAMER CARBONATE 800 MG TABLET PO SCH ×3 (08:21→16:35)
[2022-09-15] MEDS: HEPARIN 5,000 UNIT/1 ML VIAL SUBCUT SCH ×2 (08:22→21:10)
[2022-09-15] MEDS: BACILLUS COAGULANS CAPLET PO SCH ×2 (08:23→21:10)
[2022-09-15] MEDS: carvediloL 12.5 MG TABLET PO SCH ×2 (08:23→21:10)
[2022-09-15] MEDS: metOLazone 5 MG TABLET PO SCH (08:23)
[2022-09-15] MEDS: ISOSORBIDE MONONITRATE 30 MG TABLET PO SCH (08:23)
[2022-09-15] MEDS: FERROUS SULFATE 325 MG TABLET PO SCH (08:23)
[2022-09-15] MEDS: OSELTAMIVIR 30 MG CAPSULE PO SCH ×2 (08:23→21:12)
[2022-09-15] MEDS: levETIRAcetam 500 MG TABLET PO SCH ×2 (08:23→21:11)
[2022-09-15] MEDS: ATORVASTATIN 80 MG TABLET PO SCH (08:23)
[2022-09-15] MEDS: AMIODARONE 200 MG TABLET PO SCH ×2 (08:24→21:10)
[2022-09-15] MEDS: CLOPIDOGREL 75 MG TABLET PO SCH (08:24)
[2022-09-15] MEDS: SODIUM BICARBONATE 650 MG TABLET PO SCH ×2 (08:24→21:12)
[2022-09-15] MEDS: GABAPENTIN 300 MG CAPSULE PO SCH ×3 (08:24→21:12)
[2022-09-15] MEDS: CYANOCOBALAMIN 500 MCG TABLET PO SCH (08:24)
[2022-09-15] MEDS: PANTOPRAZOLE 40 MG TABLET PO SCH (08:24)
[2022-09-15] MEDS: PIPERACILLIN/TAZOBACTAM 3,375 MG in SODIUM CHLORIDE 0.9% 100 ML IV SCH ×2 (12:01→23:35)
[2022-09-15] MEDS: INSULIN GLARGINE 100 UNIT/ML SUBCUT SCH (21:11)
[2022-09-16 08:08] VITALS: BP 136/72
[2022-09-16] MEDS: ISOSORBIDE MONONITRATE 30 MG TABLET PO SCH (08:48)
[2022-09-16] MEDS: ATORVASTATIN 80 MG TABLET PO SCH (08:48)
[2022-09-16] MEDS: FERROUS SULFATE 325 MG TABLET PO SCH (08:48)
[2022-09-16] MEDS: levETIRAcetam 500 MG TABLET PO SCH (08:48)
[2022-09-16] MEDS: CYANOCOBALAMIN 500 MCG TABLET PO SCH (08:48)
[2022-09-16] MEDS: SEVELAMER CARBONATE 800 MG TABLET PO SCH (08:49)
[2022-09-16] MEDS: OSELTAMIVIR 30 MG CAPSULE PO SCH (08:49)
[2022-09-16] MEDS: GABAPENTIN 300 MG CAPSULE PO SCH (08:49)
[2022-09-16] MEDS: SODIUM BICARBONATE 650 MG TABLET PO SCH (08:49)
[2022-09-16] MEDS: AMIODARONE 200 MG TABLET PO SCH (08:49)
[2022-09-16] MEDS: INSULIN REGULAR 100 UNIT/ML SUBCUT SCH (08:49)
[2022-09-16] MEDS: CLOPIDOGREL 75 MG TABLET PO SCH (08:49)
[2022-09-16] MEDS: metOLazone 5 MG TABLET PO SCH (08:49)
[2022-09-16] MEDS: carvediloL 12.5 MG TABLET PO SCH (08:49)
[2022-09-16] MEDS: BACILLUS COAGULANS CAPLET PO SCH (08:49)
[2022-09-16] MEDS: PANTOPRAZOLE 40 MG TABLET PO SCH (09:13)
[2022-09-16 10:25] LABS: Basophils # 0.1 10*3/uL (0.0-0.2); Basophils % 0.7 % (0.0-0.8); Eosinophils # 0.2 10*3/uL (0.0-0.87); Eosinophils % 2.3 % (0.00-10.9); Hematocrit 30.8 VOL% (42.0-52.0); Hemoglobin 9.7 GM/DL (14.0-18.0); Immature Granulocytes % 2.3 %; Immature Granulocytes Absolute 0.19 #; Lymphocytes # 1.1 10*3/uL (1.4-4.0); Lymphocytes % 13.4 % (21.2-54.2); Mean Corpuscular HGB Conc 31.5 GM/DL (32-36); Mean Corpuscular Volume 96.9 FL (87-102); Mean Platelet Volume 11.3 FL (9.6-12.0); Monocytes # 0.6 10*3/uL (0.11-0.8); Monocytes % 6.5 % (1.7-12.7); Neutrophils % 74.8 % (38.7-73.9); Platelet Count 214 T/CUMM (130-400); Red Blood Count 3.18 MC/CUMM (3.8-5.5); Red Cell Distribution Width 18.3 % (9.3-17.3); White Blood Count 8.4 T/CUMM (4-12)
[2022-09-16] MEDS: HEPARIN 5,000 UNIT/1 ML VIAL SUBCUT SCH (10:40)
[2022-09-16 11:19] LABS: Alanine Aminotransferase 24 U/L (16-61); Albumin 2.2 G/DL (3.4-5.0); Alkaline Phosphatase 88 U/L (45-117); Aspartate Amino Transferase 18 U/L (0-37); Bilirubin,Total < 0.39 MG/DL (0.20-1.00); Blood Urea Nitrogen 41 MG/DL (7-18); Calcium 8.5 MG/DL (8.5-10.1); Carbon Dioxide 28 MMOL/L (21-32); Chloride 95 MMOL/L (98-107); Glucose 475 MG/DL (74-106); Osmolality,Calculated 292.7 MOS/KG (273-304); Sodium 131 MMOL/L (136-145); Total Protein 6.7 G/DL (6.4-8.2)
[2022-09-16] MEDS ORDERED: INSULIN GLARGINE 100 UNIT/ML SUBCUT SCH (21:00)
== END 2022-09-16 11:28 | disposition left against medical advice (07) | DRG 194 ==
LOC: EDBD → EDUNIT# → N.ED 17:50 → N.2E 22:03 → SUATTDRO 22:03 → N.2E 23:48
PROVIDERS: ADMIT Internal Medicine; ATTEND Internal Medicine